=== PATIENT | female | born 1945 | race Caucasian/White ===

== ENCOUNTER → 2018-02-07 08:56 | Outpatient (CLI) | payer MEDICARE, OTHER, SELFPAY ==
--- NOTE | 2018-02-07 08:59 | DI.RAD.S_ITS ---
PROCEDURE: FL UPPER GI SMALL BOWEL INDICATIONS: pud COMPARISON: [facility], CR, CHEST 1 VIEW, 01/10/2018, 17:57. FINDINGS: KUB: Preprocedural manager ui film shows a normal bowel gas pattern. No suspicious abdominal calcifications. Visualized solid organ contours appear normal in size. No suspicious bony abnormalities. Esophagus: Air-contrast views demonstrate a normal mucosal pattern. On single-contrast views, there is normal peristalsis. No fixed strictures, extrinsic mass effects, or diverticula. There is a small hiatal hernia. Moderate gastroesophageal reflux. There is normal transit of a calibrated barium tablet through the esophagus. Stomach: The gastric lumen is normally distensible, and has normal rugal fold thickness. No mucosal masses or ulcers. The pylorus and duodenal bulb have a normal morphology. Small bowel: Duodenal folds appear normal in thickness. There is normal transit time of barium through the small intestine. Small bowel loops appear normal in caliber throughout. Jejunal and ileal folds are smooth and normal in thickness. No strictures, intraluminal masses, or extrinsic mass effects. The terminal ileum is identified and appears normal. IMPRESSION: 1. Moderate y severe gastroesophageal reflux. 2. Small hiatal hernia. 2. Normal small bowel follow-through. Dictated by: Leonides Hallman M.D. on 02/07/2018 at 15:38 Approved by: Leonides Hallman M.D. on 02/07/2018 at 15:40
== END ==
PROVIDERS: Family Provider Family Medicine; PCP Family Medicine; Visit Provider Family Medicine
DX: K21.9 Gastro-esophageal reflux disease without esophagitis (principal); K44.9 Diaphragmatic hernia without obstruction or gangrene
CPT/HCPCS: 74245

== ENCOUNTER 2018-03-26 06:37 | Day surgery (SDC) | payer MEDICARE, OTHER, SELFPAY ==
--- NOTE | 2018-03-26 | PATH_ITS ---
[facility] Accession Number: [id number] . 01 Material submitted: . THIRD PART OF DUODENUM . 02 Diagnosis: Biopsy Third Part of Duodenum: Fragments of normal appearing duodenum mucosa. Normal delicate mucosal villi present. Negative for significant inflammation, dysplasia or malignancy. MRV/03/27/2018 . 02 Electronically signed: . Jace Bergeron MD, Pathologist NPI- [id number] . 01 Gross description: . Received in one formalin-filled container, labeled with the patient's name, labeled third part of duodenum, are two 0.1-0.2 cm portions of tissue, entirely submitted in one cassette. ([id number]) /FRR . 02 Pathologist provided ICD-10: R10.13 . 02 CPT . 613891 Performed at: 01 [facility] [address] [place] [address] [id number] MD Kerwin Perez MD Phone: [phone] Performed at: 02 [facility] [address] [place] [address] [id number] MD Pop Ugarte MD Phone: [phone]
[2018-03-26] MEDS: SODIUM CHLORIDE 0.9% 1,000 ML 200 ML IV (07:20)
[2018-03-26 07:22] VITALS: BP 156/80; PULSE 83; RESP 15; TEMP 36.8; O2SAT 99; BMI 28.0
--- NOTE | 2018-03-26 07:54 | PM.PREOP ---
Pre-operative Note Interval Note Pre-op Check: History & Physical Reviewed by Physician and Exam Performed ASA Class (for procedural sedation): II
[2018-03-26] MEDS: LIDOCAINE 4% SOLN 50 ML 20 ML TOP (07:59)
[2018-03-26] MEDS: TETRACAINE/BENZOCAINE/BUTAMBEN (CETACAINE) BOTTLE 1 SPRAY TOP (08:00)
--- NOTE | 2018-03-26 08:14 | PM.OP.ENDO ---
Operative Date/Time/Diagnoses Date of procedure: 03/26/18 Time of procedure: 08:15 Pre-op diagnosis: Epigastric upper abdominal pain Post-op diagnosis: same (Small hiatal hernia. Irregularity of the duodenum biopsied.) Procedure & Clinicians Study performed: EGD with cold biopsy Same procedure as scheduled: Yes Indications: Epigastric pain. Reflux on upper GI. Surgeon: Omid Chapman Procedure Notes SCOAP/Timeout: Performed Procedure in detail: The patient had topical anesthetic applied to oropharynx. She was placed in left lateral decubitus position and underwent IV sedation directed by the surgeon consisting of fentanyl and Versed. A bite block was inserted and the scope was advanced through it into the esophagus. The esophagus was unremarkable. GE junction was noted at[38 cm from the incisors. I all hernia was noted.]. The stomach insufflated well. There were no lesions seen in the body, antrum or at the incisura. The pyloric channel was narrowed but patent. The duodenum bulb was normal. The 2nd portion the duodenum was also normal but as I made my turn into the 3rd portion there was a frondlike whitish lesion which I biopsied. It was not completely removed. The scope was brought back into the stomach and retroflexed. The proximal stomach was normal in appearance except for a hiatal hernia that was apparent from below. Gastric mucosa freely was seen to move up and down over the diaphragmatic compression. The scope was straightened and brought out through the esophagus again. No lesions were seen. The scope was removed and the patient tolerated the procedure well. Scope withdrawal time: Not applicable Sedation minutes: 12 Findings: hiatal hernia and other findings (Duodenal lesion 3rd part) Specimen(s): other (Duodenal lesion) Complications: none Plan for aftercare: Will send letter or call regarding biopsy results. Follow up: as needed Disposition: PACU
[2018-03-26 08:16] VITALS: BP 131/85; PULSE 80; RESP 15; TEMP 36.3; O2SAT 93
[2018-03-26] MEDS: MIDAZOLAM 5 MG/5 ML VIAL IV (08:16)
[2018-03-26 08:21] VITALS: BP 117/68; PULSE 78; RESP 14; O2SAT 93
[2018-03-26 08:26] VITALS: BP 122/7; PULSE 78; RESP 15; O2SAT 94
[2018-03-26 08:31] VITALS: BP 128/70; PULSE 78; RESP 18; O2SAT 98
[2018-03-26 08:34] VITALS: BP 128/70; PULSE 76; RESP 21; TEMP 36.3; O2SAT 98
== END 2018-03-26 08:58 | disposition home or self-care (01) ==
PROVIDERS: Family Provider Family Medicine; PCP Family Medicine; Visit Provider Specialist
PROC: 0DJ08ZZ Inspection of Upper Intestinal Tract, Via Natural or Artificial Opening Endoscopic (ICD-10-PCS; CPT 43235; principal; 2018-03-26 07:45)
DX: R10.13 Epigastric pain (principal); K21.9 Gastro-esophageal reflux disease without esophagitis; K44.9 Diaphragmatic hernia without obstruction or gangrene; K31.9 Disease of stomach and duodenum, unspecified; F41.9 Anxiety disorder, unspecified; E03.9 Hypothyroidism, unspecified
CPT/HCPCS: 43239; 88305; 99152; J2250

== ENCOUNTER → 2018-06-25 08:48 | Outpatient (CLI) | payer MEDICARE, OTHER, SELFPAY ==
[2018-06-25 09:24] LABS: Add Manual Diff / Slide Review NO; Basophils Percent Auto 0.9 % (0-2); Eosinophils Percent Auto 2.3 % (2-4); Hematocrit 37.5 % (36-46); Hemoglobin 12.7 g/dL (12.0-16.0); Mean Corpuscular HGB Conc 33.9 % (30-36); Mean Corpuscular Hemoglobin 30.2 PG (26-34); Mean Corpuscular Volume 88.8 fL (80-100); Neutrophils Absolute Auto 2700 /uL (3000-5900); Neutrophils Percent Auto 61.8 % (50-75); Platelet Count 210 X10^3/uL (150-400); Red Blood Cell Count 4.22 X10^6/uL (4.0-5.2); Red Cell Distribution Width 13.1 % (11.6-14.8); White Blood Cell Count 4.4 X10^3/uL (4.5-11.0)
[2018-06-25 10:05] LABS: BUN Creatinine Ratio 17.8 (6-22); Blood Urea Nitrogen 16 mg/dL (7-17); Calcium 9.3 mg/dL (8.4-10.2); Carbon Dioxide 30 mmol/L (22-32); Chloride 104 mmol/L (98-107); Estimated Glomerular Filt Rate > 60.0 mL/min (>60); Glucose 107 mg/dL (80-110); HEMOLYSIS < 15 (0-50); Potassium 4.6 mmol/L (3.4-5.1); Sodium 144 mmol/L (137-145)
== END ==
PROVIDERS: PCP Family Medicine; Visit Provider Family Medicine
DX: D69.6 Thrombocytopenia, unspecified (principal); D72.819 Decreased white blood cell count, unspecified; I10 Essential (primary) hypertension
CPT/HCPCS: 36415; 80048; 85025

== ENCOUNTER → 2018-06-28 15:35 | Outpatient (CLI) | payer MEDICARE, OTHER, SELFPAY ==
--- NOTE | 2018-06-28 15:53 | DI.RAD.S_ITS ---
PROCEDURE: XR THORACIC SPINE 3V INDICATIONS: pain TECHNIQUE: 3 views of the thoracic spine were acquired. COMPARISON: None. FINDINGS: Bones: No fractures or dislocations. No suspicious bony lesions. Mild levocurvature. Cervical disc degeneration noted. There is multilevel endplate sclerosis and spurring. Soft tissues: No paravertebral stripe thickening. IMPRESSION: Multilevel thoracic and cervical disc degeneration. Dictated by: Reid Hayden M.D. on 06/28/2018 at 17:05 Approved by: Reid Hayden M.D. on 06/28/2018 at 17:08
[2018-06-28 16:46] LABS: Alanine Aminotransferase 29 IU/L (9-52); Albumin 4.7 g/dL (3.5-5.0); Albumin Globulin Ratio 1.5 (1.0-2.8); Alkaline Phosphatase 55 U/L (38-126); Amylase 74 U/L (30-110); Aspartate Aminotransferase 23 IU/L (14-36); BUN Creatinine Ratio 18.9 (6-22); Bilirubin Total 0.3 mg/dL (0.2-1.3); Blood Urea Nitrogen 17 mg/dL (7-17); Calcium 9.5 mg/dL (8.4-10.2); Carbon Dioxide 28 mmol/L (22-32); Chloride 103 mmol/L (98-107); Estimated Glomerular Filt Rate > 60.0 mL/min (>60); Globulin 3.1 g/dL (1.7-4.1); Glucose 97 mg/dL (80-110); HEMOLYSIS < 15 (0-50); Lipase 124 U/L (23-300); Potassium 3.9 mmol/L (3.4-5.1); Sodium 141 mmol/L (137-145); Total Protein 7.8 g/dL (6.3-8.2)
== END ==
PROVIDERS: PCP Family Medicine; Visit Provider Family Medicine
DX: R10.11 Right upper quadrant pain (principal); M54.6 Pain in thoracic spine
CPT/HCPCS: 36415; 72072; 80053; 82150; 83690

== ENCOUNTER → 2018-07-02 10:05 | Outpatient (CLI) | payer MEDICARE, OTHER, SELFPAY ==
--- NOTE | 2018-07-02 10:13 | DI.CT.S_ITS ---
PROCEDURE: CT ABDOMEN WO/W CON INDICATIONS: right sidedinfracostal tenderness/fullness TECHNIQUE: 4 phase scanning was performed. Non-contrast 5 mm axial sections acquired from the diaphragm to the iliac crests. Following the administration of intravenous contrast, 5 mm thick arterial-phase, portal venous-phase, and 5-minute delayed phase images were acquired through the liver. 5 mm thick coronal and sagittal reformats were performed. For radiation dose reduction, the following was used: automated exposure control, adjustment of mA and/or kV according to patient size. COMPARISON: None. FINDINGS: Image quality: Excellent. Lung bases: Lung bases are clear. Heart size is normal. Liver: The liver appears free of mass or cirrhotic change, and no biliary distention is found. Other solid organs: Gallbladder has been previously resected. Biliary system is non dilated. Pancreas is normal in morphology. Spleen is normal in size and enhancement. No adrenal nodules. Both kidneys demonstrate normal size and enhancement, without hydronephrosis or nephrolithiasis. Nodes and vessels: No retroperitoneal or mesenteric adenopathy by size criteria. Aorta and inferior vena cava are normal in size. Bowel and peritoneum: Unenhanced bowel loops are normal in caliber. No free fluid or air. Bones: No suspicious bony lesions. No vertebral body compression fractures. Miscellaneous: No ventral hernias. IMPRESSION: Source of current symptoms is not found. The lower chest and ribs appear normal bilaterally, and the liver is free of mass or inflammation. Prior cholecystectomy. No biliary distention found. Through the large and small bowel visualized no lesion is seen. Dictated by: Kaden William M.D. on 07/02/2018 at 14:36 Approved by: Kaden William M.D. on 07/02/2018 at 14:38
== END ==
PROVIDERS: Family Provider Family Medicine; PCP Family Medicine; Visit Provider Family Medicine
DX: R10.11 Right upper quadrant pain (principal); Z90.49 Acquired absence of other specified parts of digestive tract
CPT/HCPCS: 74170; Q9967

== ENCOUNTER → 2019-07-05 09:28 | Outpatient (CLI) | payer MEDICARE, OTHER, SELFPAY ==
[2019-07-05 11:02] LABS: Add Manual Diff / Slide Review NO; Basophils Absolute Auto 0 /uL (0-100); Basophils Percent Auto 1.2 % (0-2); Eosinophils Absolute Auto 100 /uL (0-450); Eosinophils Percent Auto 2.3 % (2-4); Hematocrit 38.9 % (36-46); Hemoglobin 13.3 g/dL (12.0-16.0); Lymphocytes Absolute Auto 1100 /uL (1100-4500); Lymphocytes Percent Auto 27.2 % (25-40); Mean Corpuscular HGB Conc 34.3 % (30-36); Mean Corpuscular Hemoglobin 30.8 PG (26-34); Mean Corpuscular Volume 89.8 fL (80-100); Monocytes Absolute Auto 400 /uL (0-900); Monocytes Percent Auto 11.2 % (3-14); Neutrophils Absolute Auto 2300 /uL (1500-7000); Neutrophils Percent Auto 58.1 % (50-75); Platelet Count 241 X10^3/uL (150-400); Red Blood Cell Count 4.33 X10^6/uL (4.0-5.2); Red Cell Distribution Width 12.9 % (11.6-14.8)
[2019-07-05 11:16] LABS: Alanine Aminotransferase 18 IU/L (9-52); Albumin 4.5 g/dL (3.5-5.0); Albumin Globulin Ratio 1.4 (1.0-2.8); Alkaline Phosphatase 51 U/L (38-126); Aspartate Aminotransferase 25 IU/L (14-36); BUN Creatinine Ratio 13.3 (6-22); Bilirubin Total 0.5 mg/dL (0.2-1.3); Blood Urea Nitrogen 12 mg/dL (7-17); Calcium 9.3 mg/dL (8.4-10.2); Carbon Dioxide 29 mmol/L (22-32); Chloride 104 mmol/L (98-107); Cholesterol 174 mg/dL (140-199); Estimated Glomerular Filt Rate > 60.0 mL/min (>60); Globulin 3.2 g/dL (1.7-4.1); Glucose 112 mg/dL (80-110); HDL Cholesterol 79 mg/dL (40-60); HEMOLYSIS < 15 (0-50); LDL Cholesterol Calculated 82 mg/dL (<100); Potassium 4.2 mmol/L (3.4-5.1); Sodium 139 mmol/L (137-145); Total Protein 7.7 g/dL (6.3-8.2); Triglycerides 67 mg/dL (35-150)
[2019-07-05 11:43] LABS: Thyroid Stimulating Hormone 0.92 uIU/mL (0.47-4.68)
== END ==
PROVIDERS: PCP Family Medicine; Visit Provider Family Medicine
DX: E03.9 Hypothyroidism, unspecified (principal); E78.2 Mixed hyperlipidemia; I10 Essential (primary) hypertension
CPT/HCPCS: 36415; 80053; 80061; 84443; 85025

== ENCOUNTER 2020-08-22 09:37 | Observation (INO) | payer MEDICARE, OTHER, SELFPAY ==
[2020-08-22] VITALS (22 sets, daily range): BP systolic 103–180; BP diastolic 61–104; PULSE 63–163; RESP 14–34; TEMP 36.5–36.9; O2SAT 93–100; BMI 30.1; BMI 30.7
--- NOTE | 2020-08-22 09:51 | DI.RAD.S_ITS ---
PROCEDURE: XR CHEST 1V INDICATIONS: arrhythmia TECHNIQUE: One view of the chest was acquired. COMPARISON: [facility], CHEST 2 VIEW, 03/06/2007, 11:53. [facility], CHEST 2 VIEW, 10/13/2016, 19:48. [facility], CHEST 1 VIEW, 01/10/2018, 17:57. FINDINGS: Surgical changes and devices: None. Lungs and pleura: Lungs are clear. No pleural effusions or pneumothorax. Mediastinum: Mediastinal contours appear normal. Heart size is normal. Bones and chest wall: No suspicious bony lesions. Age-appropriate bony degenerative changes are seen. Overlying soft tissues appear unremarkable. IMPRESSION: Portable chest within normal limits for age. Dictated by: Paresh Tipton M.D. on 08/22/2020 at 9:09 Approved by: Paresh Tipton M.D. on 08/22/2020 at 9:10
--- NOTE | 2020-08-22 09:54 | ED_ITS ---
HPI - Chest Pain General Chief Complaint: Chest Pain Stated Complaint: chest and shoulder pain Time Seen by Provider: 08/22/20 09:44 Source: patient and family Mode of arrival: Ambulatory Limitations: no limitations History of Present Illness HPI narrative: This is a 75-year-old female who comes to the emergency dep artment with complaint of sudden onset fast heartbeat. Patient states she developed back pain that radiated to her anterior chest when this occurred. She felt quite short of breath although this is improving. She states the chest pain/pressure has been resolving. She felt mildly lightheaded but did not feel like she is going to pass out. She denies any diaphoresis, some mild nausea but no vomiting. No new issues with bowel movements or urination. She denies any swelling in her extremities. She has had similar episodes in the past but did not feel like they were as fast and resolved quickly wears this 1 has continued. She states that it occurred about 7:00 a.m. while she was awake, she felt like something grabbed her heart and then noted her heart beat was very fast. She states she has episodes every couple of months. She has a history of hypertension, dyslipidemia hypothyroidism. She states she had a stress test approximately 20 years ago but has not had any other cardiac interventions or evaluations. She has had multiple surgeries including cholecystectomy, appendectomy, total abdominal hysterectomy, knee surgery but nothing in the last several months. She is allergic to sulfa. Dr. Blum is her primary care. Related Data Previous Rx's Medication Instructions Recorded levothyroxine 88 mcg tablet 88 mcg PO Q DAY #90 tab 07/20/20 lisinopril 5 mg tablet 5 mg PO QDAY #90 tab 07/20/20 simvastatin 20 mg tablet 20 mg PO HS #90 tab 07/20/20 Allergies Allergy/AdvReac Type Severity Reaction Status Date / Time Sulfa (Sulfonamide AdvReac Severe VOMITING Verified 06/28/18 14:46 Antibiotics) [SULFA (SULFONAMIDE ANTIBIOTICS)] ANESTHESIA AdvReac Severe Uncoded 06/28/18 14:46 nausea Review of Systems Review of Systems ROS Unobtainable: All systems reviewed & are unremarkable except as noted in HPI and below Patient History Medical History Chicken pox Fibroids (~1979) Measles Mumps Vision disorder Surgical History Anesthesia History of cholecystectomy History of cholecystectomy History of hysterectomy History of knee surgery Status post cholecystectomy Status post total abdominal hysterectomy and bilateral salpingo-oophorectomy (KARISHMA-BSO) Family History Father Heart disease Social History marital status: household members: spouse occupational status: previously employed Smoking Status: Never smoker alcohol intake: current substance use type: does not use Smoking Status: Never smoker Exam Narrative Exam Narrative: GENERAL: Alert and oriented x three, well-nourished, well- appearing female in mild distress. HEENT: Head normocephalic, atraumatic, EOMI, pupils reactive, face symmetric, moist mucous membranes NECK: Supple, full range of motion CARDIOVASCULAR: Tachycardic and irregularly irregular rate and rhythm without murmurs, rubs or gallops. No JVD appreciated. No edema bilateral lower extr emities. RESPIRATORY: Breath sounds equal bilaterally, no wheezes rales or rhonchi. No tachypnea accessory muscle use. Speaks in full sentences. ABDOMEN: Soft, nontender. Normoactive bowel sounds all 4 quadrants. No guarding or rebound, rigidity, no mass : No CVA tenderness EXTREMITIES: Normal range of motion, no clubbing or edema. Neurovascularly intact NEUROLOGICAL: Cranial nerves II through XII grossly intact. Moving all extremities SKIN: Warm, dry, no petechiae, no rashes or lesions. Initial Vital Signs Initial Vital Signs: Vital Signs Temperature 98 F 08/22/20 10:23 Pulse Rate 152 H 08/22/20 10:23 Respiratory Rate 18 08/22/20 10:23 Blood Pressure 180/104 H 08/22/20 10:23 Pulse Oximetry 100 08/22/20 10:23 Scores CHADS-VASc Hypertension: yes Age 75 years or older: yes Diabetes mellitus: no Stroke, TIA, or TE: no Vascular disease: no Age 65 to 74 years: yes Sex category (female): Female Course Orders Ordered: ED Orders 08/22/20 09:39 XR chest 1V Stat EKG-12 Lead Stat 08/22/20 09:50 Complete Blood Count AUTO DIFF Stat Comprehensive Metabolic Panel Stat Lipase Stat Magnesium Stat Partial Thromboplastin Time Stat Prothrombin Time INR Stat Troponin & CK Cardiac Panel Stat 08/22/20 09:51 XR chest 1V Stat Thyroid Stimulating Hormone Stat 08/22/20 10:45 COVID19 Stat 08/22/20 14:01 EC echo doppler complete Routine 08/23/20 05:00 Prothrombin Time INR Routine Troponin I Routine Enoxaparin Sodium (Enoxaparin 80 Mg/0.8 Ml Syringe) 75 mg 1 mg/kg (75 mg) SUBCUT DAILY [facility] Last Admin: 08/22/20 15:02 Dose: 75 mg Documented by: ALFONSO Dextrose/Sodium Chloride (Dextrose 5%-0.45% Ns) 1,000 mls @ 100 mls/hr IV CONT [facility] Last Admin: 08/22/20 14:36 Dose: 100 mls/hr Documented by: ALFONSO DILTIAZEM (Diltiazem 125 Mg/125 Ml-D5w) 125 mg in 125 mls @ 5 mls/hr IV TITRATE ARGENIS; Protocol Last Admin: 08/22/20 14:35 Dose: Not Given Documented by: ALFONSO Levothyroxine Sodium (Levothyroxine 88 Mcg Tablet) 88 mcg PO DAILY@0600 [facility] Lisinopril (Lisinopril 5 Mg Tablet) 5 mg PO DAILY [facility] Metoprolol Tartrate (Metoprolol Tartrate 5 Mg/5 Ml Inj) 5 mg IV Q2HR PRN PRN Reason: Heart Rate- High Metoprolol Tartrate (Metoprolol Ir 50 Mg Tablet) 50 mg PO Q6H [facility] Last Admin: 08/22/20 15:05 Dose: 50 mg Documented by: ALFONSO Naloxone HCl (Naloxone 0.4 Mg/Ml Vial) 0.2 mg IV Q2MIN PRN PRN Reason: Opiate Reversal Sennosides (Sennosides 8.6 Mg Tablet) 17.2 mg PO BEDTIME [facility] Simvastatin (Simvastatin 20 Mg Tablet) 20 mg PO BEDTIME ARGENIS Discontinued Medications Diltiazem HCl (Diltiazem 5 Mg/Ml Sdv) 10 mg IV NOW ONE Stop: 08/22/20 09:52 Last Admin: 08/22/20 10:01 Dose: 10 mg Documented by: CHUCKY Diltiazem HCl (Diltiazem 5 Mg/Ml Sdv) 10 mg IV NOW ONE Stop: 08/22/20 10:29 Last Admin: 08/22/20 10:30 Dose: 10 mg Documented by: CHUCKY Sodium Chloride (Normal Saline 0.9%) 1,000 mls @ 1,000 mls/hr IV BOLUS ONE Stop: 08/22/20 10:50 Last Infusion: 08/22/20 11:28 Dose: 0 mls/hr Documented by: Admin: 08/22/20 10:14 Dose: 1,000 mls/hr Documented by: CHUCKY Diltiazem HCl 125 mg/ Dextrose 125 mls @ 5 mls/hr IV TITRATE ONE; Protocol Stop: 08/23/20 10:53 Last Admin: 08/22/20 14:49 Dose: Not Given Documented by: BRIGIDA DILTIAZEM (Diltiazem 125 Mg/125 Ml-D5w) 125 mg in 125 mls @ 5 mls/hr IV TITRATE ONE; Protocol Stop: 08/23/20 11:14 Last Titration: 08/22/20 16:29 Dose: 0 mg/hr, 0 mls/hr Documented by: Titration: 08/22/20 16:12 Dose: 5 mg/hr, 5 mls/hr Documented by: Titration: 08/22/20 15:57 Dose: 10 mg/hr, 10 mls/hr Documented by: Titration: 08/22/20 13:55 Dose: 15 mg/hr, 15 mls/hr Documented by: Titration: 08/22/20 12:52 Dose: 10 mg/hr, 10 mls/hr Documented by: Admin: 08/22/20 10:13 Dose: 5 mg/hr, 5 mls/hr Documented by: CHUCKY Sodium Chloride (Normal Saline 0.9%) 1,000 mls @ 150 mls/hr IV CONT ARGENIS Last Admin: 08/22/20 11:39 Dose: 150 mls/hr Documented by: TAMIKO Reevaluation(s) Time: 11:27 Consultations Consultation #1: Spoke with Dr. Ayala who accepts for Dr. Blum, plan to continue Cardizem drip and patient will be in the ICU. Patient is in afib with RVR. Initially had improvement with diltiazem but when patient was up to a commode heart rate jumped up again. No major lab abnormalities, covid negative. Time: 11:34 Vital Signs Vital signs: Vital Signs - 8 hr 08/22/20 10:23 08/22/20 10:56 08/22/20 11:00 Temperature 98 F Pulse Rate 152 H 141 H 146 H Respiratory Rate 18 17 15 Blood Pressure 180/104 H 131/93 H Pulse Oximetry 100 99 99 08/22/20 11:16 08/22/20 11:30 08/22/20 11:38 Temperature Pulse Rate 139 H 148 H 147 H Respiratory Rate 15 34 H 18 Blood Pressure 160/76 H 145/84 H Pulse Oximetry 97 97 98 08/22/20 11:45 08/22/20 12:00 08/22/20 12:30 Temperature Pulse Rate 146 H 139 H 145 H Respiratory Rate 16 15 17 Blood Pressure 139/63 150/61 H Pulse Oximetry 97 96 97 08/22/20 13:50 Temperature 98.3 F Pulse Rate 163 H Respiratory Rate 18 Blood Pressure 169/88 H Pulse Oximetry 98 MDM - Chest Pain Lab Data Attestation: I reviewed the patient's lab results. Result diagrams: 08/22/20 09:50 08/22/20 09:50 Labs: Lab Results 08/22/20 08/22/20 08/22/20 Range/Units 09:50 09:50 09:50 WBC 6.1 (4.5-11.0) X10^3/uL RBC 4.30 (4.0-5.2) X10^6/uL Hgb 13.2 (12.0-16.0) g/dL Hct 38.8 (36-46) % MCV 90.3 (80-100) fL MCH 30.8 (26-34) PG MCHC 34.1 (30-36) % RDW 12.9 (11.6-14.8) % Plt Count 250 (150-400) X10^3/uL Neut % (Auto) 65.8 (50-75) % Lymph % (Auto) 20.7 L (25-40) % [place] % (Auto) 10.8 (3-14) % Eos % (Auto) 1.8 L (2-4) % Baso % (Auto) 0.9 (0-2) % Neut # (Auto) 4000 (6641-6851) /uL Lymph # (Auto) 1300 (3298-1283) /uL [place] # (Auto) 700 (0-900) /uL Eos # (Auto) 100 (0-450) /uL Baso # (Auto) 100 (0-100) /uL PT 11.2 (10.1-12.7) SECONDS INR 1.0 (0.9-1.3) APTT 30 (26.4-36.2) SECONDS Sodium 137 (137-145) mmol/L Potassium 4.1 (3.4-5.1) mmol/L Chloride 105 (98-107) mmol/L Carbon Dioxide 27 (22-32) mmol/L BUN 12 (7-17) mg/dL Creatinine 0.86 (0.52-1.04) mg/dL Estimated GFR > 60.0 (>60) mL/min BUN/Creatinine Ratio 14.0 (6-22) Glucose 162 H (80-110) mg/dL Calcium 9.1 (8.4-10.2) mg/dL Magnesium 1.9 (1.6-2.3) mg/dL Total Bilirubin 0.5 (0.2-1.3) mg/dL AST 26 (14-36) IU/L ALT 19 (<35) IU/L Alkaline Phosphatase 51 (38-126) U/L Total Creatine Kinase 45 (30-135) U/L CK-MB (CK-2) TNP CK-MB (CK-2) Rel Index TNP Troponin I < 0.012 (0.01-0.034) ng/mL Total Protein 7.3 (6.3-8.2) g/dL Albumin 4.3 (3.5-5.0) g/dL Globulin 3.0 (1.7-4.1) g/dL Albumin/Globulin Ratio 1.4 (1.0-2.8) Lipase 112 (23-300) U/L TSH (0.47-4.68) uIU/mL COVID-19 PCR (Negative) 08/22/20 08/22/20 Range/Units 09:51 10:45 WBC (4.5-11.0) X10^3/uL RBC (4.0-5.2) X10^6/uL Hgb (12.0-16.0) g/dL Hct (36-46) % MCV (80-100) fL MCH (26-34) PG MCHC (30-36) % RDW (11.6-14.8) % Plt Count (150-400) X10^3/uL Neut % (Auto) (50-75) % Lymph % (Auto) (25-40) % [place] % (Auto) (3-14) % Eos % (Auto) (2-4) % Baso % (Auto) (0-2) % Neut # (Auto) (8695-7111) /uL Lymph # (Auto) (1374-0248) /uL [place] # (Auto) (0-900) /uL Eos # (Auto) (0-450) /uL Baso # (Auto) (0-100) /uL PT (10.1-12.7) SECONDS INR (0.9-1.3) APTT (26.4-36.2) SECONDS Sodium (137-145) mmol/L Potassium (3.4-5.1) mmol/L Chloride (98-107) mmol/L Carbon Dioxide (22-32) mmol/L BUN (7-17) mg/dL Creatinine (0.52-1.04) mg/dL Estimated GFR (>60) mL/min BUN/Creatinine Ratio (6-22) Glucose (80-110) mg/dL Calcium (8.4-10.2) mg/dL Magnesium (1.6-2.3) mg/dL Total Bilirubin (0.2-1.3) mg/dL AST (14-36) IU/L ALT (<35) IU/L Alkaline Phosphatase (38-126) U/L Total Creatine Kinase (30-135) U/L CK-MB (CK-2) CK-MB (CK-2) Rel Index Troponin I (0.01-0.034) ng/mL Total Protein (6.3-8.2) g/dL Albumin (3.5-5.0) g/dL Globulin (1.7-4.1) g/dL Albumin/Globulin Ratio (1.0-2.8) Lipase (23-300) U/L TSH 1.27 (0.47-4.68) uIU/mL COVID-19 PCR Negative (Negative) Imaging Data Chest x-ray: Radiologist's Impression: [facility] [place] [id number] ReportSigned Patient: Flor Nunez JMR#: [id number]: 3Acct:[id number]/Sex: 75 / FDate of Service: 08/22/20Loc: EDAccession Number: [id number] Procedure: XR chest 1V Ordering Provider: Rere Hagen D.O. PROCEDURE: XR CHEST 1V INDICATIONS: arrhythmia TECHNIQUE: One view of the chest was acquired. COMPARISON: [facility], , CHEST 2 VIEW, 03/06/2007, 11:53. [facility], CR, CHEST 2 VIEW, 10/13/2016, 19:48. [facility], CR, CHEST 1 VIEW, 01/10/2018, 17:57. FINDINGS: Surgical changes and devices: None. Lungs and pleura: Lungs are clear. No pleural effusions or pneumothorax. Mediastinum: Mediastinal contours appear normal. Heart size is normal. Bones and chest wall: No suspicious bony lesions. Age-appropriate bony degenerative changes are seen. Overlying soft tissues appear unremarkable. IMPRESSION: Portable chest within normal limits for age. Dictated by: Paresh Tipton M.D. on 08/22/2020 at 9:09 Approved by: Paresh Tipton M.D. on 08/22/2020 at 9:10 ECG Data Attestation: I personally reviewed and interpreted this ECG as follows: Interpretation: AFib with rapid ventricular response with a rate 156, QRS of 85 and QTC of 330. Patient possibly has little ST depression in lead but not appreciated in 3 AVF. No significant elevation appreciated. Patient has prior EKG from 01/10/2018 which was normal sinus rhythm with PVC at that time. Lateral leads had a little bit of J-point depression which appears similar to today but no other significant ST changes MDM Narrative Medical decision making narrative: This is a 75-year-old female who comes in with complaint of a sensation of fast heartbeat. Patient states she was having some chest pressure that started in her back and radiated anteriorly. Patient does appear to be in AFib with RVR with a heart rate initially in the 170s, it did improve with diltiazem but continues to be tachycardic even on diltiazem drip. Patient does not have major lab abnormalities, chest x-ray is negative she is not currently short of breath so BNP was deferred. Troponin is negative with no significant ST segment changes. Patient is accepted for admission by Dr. Ayala. Discharge Plan Departure Patient Disposition: Admitted as Observation Clinical Impression: Atrial fibrillation with RVR Admit Date/Time: 08/22/20 13:53 Admit Provider: Leonardo Ayala
[2020-08-22 09:58] LABS: Add Manual Diff / Slide Review NO; Basophils Absolute Auto 100 /uL (0-100); Basophils Percent Auto 0.9 % (0-2); Eosinophils Absolute Auto 100 /uL (0-450); Eosinophils Percent Auto 1.8 % (2-4); Hematocrit 38.8 % (36-46); Hemoglobin 13.2 g/dL (12.0-16.0); Lymphocytes Absolute Auto 1300 /uL (1100-4500); Lymphocytes Percent Auto 20.7 % (25-40); Mean Corpuscular HGB Conc 34.1 % (30-36); Mean Corpuscular Hemoglobin 30.8 PG (26-34); Mean Corpuscular Volume 90.3 fL (80-100); Monocytes Absolute Auto 700 /uL (0-900); Monocytes Percent Auto 10.8 % (3-14); Neutrophils Absolute Auto 4000 /uL (1500-7000); Neutrophils Percent Auto 65.8 % (50-75); Platelet Count 250 X10^3/uL (150-400); Red Cell Distribution Width 12.9 % (11.6-14.8); White Blood Cell Count 6.1 X10^3/uL (4.5-11.0)
[2020-08-22] MEDS: dilTIAZem 5 MG/ML SDV 10 MG IV ×2 (10:01→10:30)
[2020-08-22 10:03] LABS: Prothrombin Time 11.2 SECONDS (10.1-12.7)
[2020-08-22 10:06] LABS: PTT Partial Thromboplastin Tim 30 SECONDS (26.4-36.2)
[2020-08-22 10:08] LABS: Alanine Aminotransferase 19 IU/L (<35); Albumin 4.3 g/dL (3.5-5.0); Albumin Globulin Ratio 1.4 (1.0-2.8); Alkaline Phosphatase 51 U/L (38-126); Aspartate Aminotransferase 26 IU/L (14-36); Bilirubin Total 0.5 mg/dL (0.2-1.3); Blood Urea Nitrogen 12 mg/dL (7-17); Calcium 9.1 mg/dL (8.4-10.2); Carbon Dioxide 27 mmol/L (22-32); Chloride 105 mmol/L (98-107); Creatine Kinase 45 U/L (30-135); Estimated Glomerular Filt Rate > 60.0 mL/min (>60); Glucose 162 mg/dL (80-110); HEMOLYSIS < 15 (0-50); Lipase 112 U/L (23-300); Magnesium 1.9 mg/dL (1.6-2.3); Potassium 4.1 mmol/L (3.4-5.1); Sodium 137 mmol/L (137-145); Total Protein 7.3 g/dL (6.3-8.2)
[2020-08-22] MEDS: DILTIAZEM 125 MG/125 ML PIGGYBACK IV (10:13)
[2020-08-22] MEDS: SODIUM CHLORIDE 0.9% 1,000 ML 1000 ML IV (10:14)
[2020-08-22 10:19] LABS: Troponin I < 0.012 ng/mL (0.01-0.034)
[2020-08-22 10:50] LABS: Thyroid Stimulating Hormone 1.27 uIU/mL (0.47-4.68)
[2020-08-22 11:13] LABS: COVID19 -Nasal RAPID Negative (Negative)
[2020-08-22] MEDS: SODIUM CHLORIDE 0.9% 1,000 ML 150 ML IV (11:39)
--- NOTE | 2020-08-22 14:01 | DI.ECHO.S_ITS ---
[place] +---------+ [facility] +---------+ : : [address] : : : : [id number] : : : : Phone: [phone]+ Echocardiogram Report + + :Name: TRISH MATOS Study Date: 08/23/2020 Height: 63 in : :[facility] Weight: 170 lb : : Gender: Female BSA: 1.8 m2 : :: 1945 Age: 75 yrs BP: 128/80 mmHg: :Reason For Study: AFIB WITH RVE : :Ordering Physician: NNADINI, : :NICOLE Performed By: Rose Muhammad : :Referring: NICOLE DELATORRE : + + Interpretation Summary Atrial fibrillation with rapid ventricular response. Normal LV size; mild concentric LVH. Normal wall motion and left ventricular systolic function. Ejection fraction is 55-60%. Mild left atrial enlargement. Otherwise normal chamber sizes. No significant valvular abnormalities. No prior study available for comparison. Procedure: A two-dimensional transthoracic echocardiogram with color flow and Doppler was performed. The study quality was technically adequate. There is no prior echocardiogram noted for this patient. The patient was in atrial fibrillation with heart rates between 94-119 bpm during the exam. Left Ventricle: The left ventricle is normal in size. Left ventricular wall thickness is mildly increased. Proximal septal thickening is noted. The ejection fraction is estimated to be 55-60%. Diastolic function could not be accurately assessed due to atrial fibrillation. Right Ventricle: The right ventricle is normal in size and function. Atria: The left atrium is mildly dilated. Right atrial size is normal. There is no Doppler evidence for an interatrial shunt. Mitral Valve: The mitral valve leaflets appear mildly thickened, but open well. There is mild mitral annular calcification. There is mild mitral regurgitation. Aortic Valve: The aortic valve is grossly normal. The aortic valve opens well. There is no aortic valve stenosis. No aortic regurgitation is present. Tricuspid Valve: The tricuspid valve is normal in structure and function. There is mild tricuspid regurgitation. The right ventricular systolic pressure is estimated to be at least 29 mmHg based on an estimated right atrial pressure of 3 mm Hg. Pulmonic Valve: The pulmonic valve is not well visualized. There is no pulmonic valvular regurgitation. Great Vessels: The aortic root is normal size. The dimensions of the ascending aorta are normal. The IVC is of normal diameter and collapses greater than 50% with a sniff. This suggests a low right atrial pressure of 3 mm Hg. Pericardium/ Pleura There is no pericardial effusion. There is an anterior echo-free space consistent with a fat pad. There is no pleural effusion. MMode/2D Measurements & Calculations LVIDd: 4.6 cm LVOT diam: 2.0 cm LVIDs: 3.3 cm Ao root diam: 3.0 cm FS: 28.9 % Ao Arch Diam (Prox Trans): 3.3 cm EPSS: 0.68 cm IVSd: 1.2 cm LVPWd: 1.2 cm LV noble. diameter/BSA (cm/m^2): 2.6 LV sys. diameter/BSA (cm/m^2): 1.8 LA A2 area: 22.3 cm2 RA long axis: 4.9 cm LA A4 area: 17.6 cm2 RA area: 13.6 cm2 LA length (vol): 5.3 cm RA vol: 32.1 ml LA vol: 62.3 ml RA : 17.8 ml/m2 LA vol index: 34.5 ml/m2 IVC diam: 1.9 cm RVD1 (basal): 3.0 cm TAPSE: 1.7 cm Doppler Measurements & Calculations Ao V2 max: 96.6 cm/sec LVOT Max Glen: 78.6 cm/sec Ao V2 mean: 62.9 cm/sec LV V1 max P.5 mmHg Ao max P.7 mmHg LV V1 VTI: 13.2 cm Ao mean P.9 mmHg KEYSHA(I,D): 3.1 cm2 Ao V2 VTI: 13.4 cm KEYSHA(V,D): 2.6 cm2 sev ratio: 0.98 KEYSHA indexed to BSA (cm^2/m^2): 1.7 MV E max glen: 103.3 cm/sec TR max glen: 254.2 cm/sec MV A max glen: 1.1 cm/sec TR max P.8 mmHg MV E/A: 96.1 PA V2 max: 44.3 cm/sec Med Peak E' Glen: 8.4 cm/sec PA V2 mean: 27.2 cm/sec E/E' med: 12.2 PA mean P.37 mmHg Lat Peak E' Glen: 9.6 cm/sec PA pr(Accel): 20.8 mmHg E/E' lat: 10.8 E/e' average: 11.5 MV dec time: 0.15 sec SV(LVOT): 41.8 ml Electronically signed by: Tamika Newberry M.D. on [place] Physician:08/23/2020 04:01 PM
[2020-08-22] MEDS: DEXTROSE 5%-0.45% NS 1,000 ML 100 ML IV ×2 (14:36→23:55)
--- NOTE | 2020-08-22 14:50 | P.HP_ITS ---
History of Present Illness History of Present Illness Date Patient Seen: 08/22/20 Time Patient Seen: 14:15 Chief complaint: chest and shoulder pain Narrative: 75-year-old female with a history of hypothyroidism hypertension and hyperlipidemia comes in because of back and chest pain. She woke up this morning and she had pain between her shoulder blades. Radiating around to her chest. This was going on when she had a rapid heart rate as well. She became concerned enough that she came to the emergency department. Her EKG laboratory and x-ray testing showed she was in atrial fibrillation with rapid ventricular response with a heart rate of 170. Patient states over the last few months as she has had some mild increased anxiety due to family circumstances. When she gets anxious she finds her heart races. Will race on and off a number of times a week to a few times a month. Usually for a few minutes to half an hour so. It then goes away. Has never been associated with pain in her chest or her back. She just thought it was anxiety but she thinks maybe her heart was racing to begin with. Currently she has no pain in her chest or back. She is not short of breath. She is not lightheaded or dizzy. Her initial heart rate was 170s now it is 130s to 140s. She has been based on a day till is am drip. Patient has had a Nathan going workup of her thyroid condition and she is on thyroid replacement and most recent TSH is normal. Patient does not drink significant alcohol. She has had no previous coronary artery disease a known history of heart failure. On review of her blood pressure blood pressure is stable. Reviewed her laboratory testing and of note her cardiac enzymes are within normal limits. Lipase is normal thyroid is normal Patient History Medical History Chicken pox Fibroids (~1979) Measles Mumps Vision disorder Surgical History Anesthesia History of cholecystectomy History of cholecystectomy History of hysterectomy History of knee surgery Status post cholecystectomy Status post total abdominal hysterectomy and bilateral salpingo-oophorectomy (KARISHMA-BSO) Family & Social History Family History Father Heart disease Social History: household members spouse Prior Living Arrangements House Safety & Behavioral: Feels Safe in Current Yes Environment Been Physically Hurt or No Threatened By a Person Suicidal Ideation Description None Suicide Plan Description No Plan Tobacco & Substance use: Smoking Status Never smoker alcohol intake current alcohol intake frequency 0-2 drinks per day Meds Home Medications and Allergies Home Medications Medication Instructions Recorded Confirmed Type levothyroxine 88 mcg tablet 88 mcg PO Q DAY #90 tab 07/20/20 08/22/20 Rx lisinopril 5 mg tablet 5 mg PO QDAY #90 tab 07/20/20 08/22/20 Rx simvastatin 20 mg tablet 20 mg PO HS #90 tab 07/20/20 08/22/20 Rx Allergies Allergy/AdvReac Type Severity Reaction Status Date / Time Sulfa (Sulfonamide AdvReac Severe VOMITING Verified 06/28/18 14:46 Antibiotics) [SULFA (SULFONAMIDE ANTIBIOTICS)] ANESTHESIA AdvReac Severe Uncoded 06/28/18 14:46 nausea Exam Vital Signs (past 8 hours): - 08/22/20 10:23 08/22/20 10:56 08/22/20 11:00 Temperature 98 F Pulse Rate 152 H 141 H 146 H Respiratory Rate 18 17 15 Blood Pressure 180/104 H 131/93 H Pulse Oximetry 100 99 99 08/22/20 11:16 08/22/20 11:30 08/22/20 11:38 Temperature Pulse Rate 139 H 148 H 147 H Respiratory Rate 15 34 H 18 Blood Pressure 160/76 H 145/84 H Pulse Oximetry 97 97 98 08/22/20 11:45 08/22/20 12:00 08/22/20 12:30 Temperature Pulse Rate 146 H 139 H 145 H Respiratory Rate 16 15 17 Blood Pressure 139/63 150/61 H Pulse Oximetry 97 96 97 08/22/20 13:50 08/22/20 14:12 Temperature 98.3 F Pulse Rate 163 H 123 H Respiratory Rate 18 19 Blood Pressure 169/88 H 154/74 H Pulse Oximetry 98 98 Oxygen Delivery Method Room Air Oxygen Flow Rate 0 Narrative Exam Narrative: Gen.: Alert and oriented x3 no apparent distress. HEENT: NCAT PERRLA tympanic membranes are clear nares are patent oral mucosa is moist no tonsillar hypertrophy neck is supple without lymphadenopathy no thyroid enlargement. Cardio: S1-S2 irregular rate and rhythm Respiratory: Lungs are clear to auscultation no wheezes or crackles normal respiratory effort. Abdomen: Soft nontender no rebound or guarding no liver spleen enlargement no appreciable hernias Extremities: Full range of motion no appreciable weakness no cyanosis or edema. Neurologic: Grossly intact. Objective Labs Result Diagrams: 08/22/20 09:50 08/22/20 09:50 Labs: Laboratory Results - last 24 hr 08/22/20 08/22/20 08/22/20 09:50 09:50 09:50 WBC 6.1 RBC 4.30 Hgb 13.2 Hct 38.8 MCV 90.3 MCH 30.8 MCHC 34.1 RDW 12.9 Plt Count 250 Neut % (Auto) 65.8 Lymph % (Auto) 20.7 L [place] % (Auto) 10.8 Eos % (Auto) 1.8 L Baso % (Auto) 0.9 Neut # (Auto) 4000 Lymph # (Auto) 1300 [place] # (Auto) 700 Eos # (Auto) 100 Baso # (Auto) 100 PT 11.2 INR 1.0 APTT 30 Sodium 137 Potassium 4.1 Chloride 105 Carbon Dioxide 27 BUN 12 Creatinine 0.86 Estimated GFR > 60.0 BUN/Creatinine Ratio 14.0 Glucose 162 H Calcium 9.1 Magnesium 1.9 Total Bilirubin 0.5 AST 26 ALT 19 Alkaline Phosphatase 51 Total Creatine Kinase 45 CK-MB (CK-2) TNP CK-MB (CK-2) Rel Index TNP Troponin I < 0.012 Total Protein 7.3 Albumin 4.3 Globulin 3.0 Albumin/Globulin Ratio 1.4 Lipase 112 TSH COVID-19 PCR 08/22/20 08/22/20 09:51 10:45 WBC RBC Hgb Hct MCV MCH MCHC RDW Plt Count Neut % (Auto) Lymph % (Auto) [place] % (Auto) Eos % (Auto) Baso % (Auto) Neut # (Auto) Lymph # (Auto) [place] # (Auto) Eos # (Auto) Baso # (Auto) PT INR APTT Sodium Potassium Chloride Carbon Dioxide BUN Creatinine Estimated GFR BUN/Creatinine Ratio Glucose Calcium Magnesium Total Bilirubin AST ALT Alkaline Phosphatase Total Creatine Kinase CK-MB (CK-2) CK-MB (CK-2) Rel Index Troponin I Total Protein Albumin Globulin Albumin/Globulin Ratio Lipase TSH 1.27 COVID-19 PCR Negative Assessment & Plan Assessment & Plan narrative: Atrial fibrillation with rapid ventricular response. 75-year-old female with atrial fibrillation with rapid ventricular response. Started on Cardizem drips in the emergency room we will continue with that. Her heart rates high. Will start her on oral metoprolol. Provide metoprolol IV as needed to try to get her heart rate down to normal range her blood pressure is a little bit elevated she is not hypotensive. Patient is not unstable she is carrying on a conversation has no pain and she is not short of breath. I am suspicious that this has been going on for a while. Continue to workup underlying causes. With an echocardiogram magnesium level. EKG. It does not look like she has underlying heart failure coronary artery disease is her cardiac troponins are negative despite having a fairly rapid heart rate. Due to her risk of some stroke with atrial fibrillation. Patient will be placed on anticoagulation with Lovenox and will need to be converted to either warfarin or factor Xa inhibitor. Did review the risks benefits of anticoagulation with the patient and she is agreement with this. Essential hypertension. Patient's blood pressure is high. She will be continued on Cardizem starting metoprolol. And her home dose of lisinopril. Monitor closely for signs of hypotension. Hypothyroidism. Patient's TSH is normal continue her home to ice of thyroid 88 mcg a day. Hyperlipidemia. Patient is on simvastatin 20 mg a day we will continue with that. Code status full code. Disposition and plan patient admitted to the ICU for better management of atrial fibrillation blood pressure IV management of her atrial fibrillation. She will be in the hospital spanning greater than 2 midnights
[2020-08-22] MEDS: ENOXAPARIN 80 MG/0.8 ML SYRINGE 75 MG SUBCUT (15:02)
[2020-08-22] MEDS: METOPROLOL IR 50 MG TABLET PO ×2 (15:05→21:05)
[2020-08-22] MEDS: SENNOSIDES 8.6 MG TABLET 17.2 MG PO (21:05)
[2020-08-23] VITALS (16 sets, daily range): BP systolic 114–153; BP diastolic 65–93; PULSE 59–137; RESP 12–20; TEMP 36.1–37.3; O2SAT 92–100
[2020-08-23] MEDS: METOPROLOL IR 50 MG TABLET PO ×2 (02:04→09:10)
[2020-08-23 04:59] LABS: INR 1.1 (0.9-1.3); Prothrombin Time 12.3 SECONDS (10.1-12.7)
[2020-08-23] MEDS: LEVOTHYROXINE 88 MCG TABLET PO (05:08)
--- NOTE | 2020-08-23 05:30 | PC.NURSE ---
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 A fib on tele, CVR/RVR. Patient receiving scheduled Metoprolol 50 mg this AM ~0200. BP with better control, HR remains 90-100s. No complaints of chest pain/shortness of breath. Patient up to restroom multiples throughout shift with SBA. , Herrera at bedside with patient. Call light in reach, patient able to make needs/concerns known.
[2020-08-23] MEDS: lisinopriL 5 MG TABLET PO (07:58)
[2020-08-23] MEDS: ENOXAPARIN 80 MG/0.8 ML SYRINGE 75 MG SUBCUT (08:55)
--- NOTE | 2020-08-23 08:59 | PM.PN.1 ---
Subjective Subjective Date Patient Seen: 08/23/20 Time Patient Seen: 08:59 Interval history: Atrial fibrillation Patient yesterday for atrial fibrillation. She was given diltiazem drip slow her down slightly. She was then given metoprolol tartrate currently on 50 mg every 6 hours heart rate runs approximately 110 still in atrial fibrillation. She basically is asymptomatic referable to this. She came to the ER ST because shoulder and chest pain. That has since resolved. She has not ambulated much but she is active in the bedroom. She is not very hungry. She has no chest pain no shortness breath no palpitations as stated she is basically unaware has been active in room as lot of questions. Exam Vital Signs (past 8 hours): - 08/23/20 01:00 08/23/20 02:00 08/23/20 03:00 Temperature 98.2 F 97.7 F Pulse Rate 91 H 99 H 137 H Respiratory Rate 12 13 16 Blood Pressure 124/73 153/75 H 130/80 Pulse Oximetry 97 97 97 08/23/20 04:00 08/23/20 05:00 08/23/20 06:00 Temperature 99.1 F 97.7 F 97.7 F Pulse Rate 103 H 103 H 107 H Respiratory Rate 16 13 12 Blood Pressure 139/67 141/87 H 146/75 H Pulse Oximetry 99 98 97 08/23/20 07:00 08/23/20 07:58 08/23/20 08:00 Temperature 97.8 F 98.3 F Pulse Rate 120 H 109 H 103 H Respiratory Rate 15 13 Blood Pressure 128/80 145/86 H 145/86 H Pulse Oximetry 100 99 08/23/20 08:22 08/23/20 08:31 Temperature Pulse Rate 120 H 107 H Respiratory Rate 16 Blood Pressure Pulse Oximetry 98 Oxygen Delivery Method Room Air Oxygen Flow Rate 0 Narrative Exam Narrative: She appears usual self looks well. She is in no distress. Lungs are entirely clear. Cardiac exam irregularly irregular rhythm about 100 tender so. She has no calf tenderness and she has no edema Objective Labs Result Diagrams: 08/22/20 09:50 08/22/20 09:50 Labs: Laboratory Results - last 24 hr 08/22/20 08/22/20 08/22/20 09:50 09:50 09:50 WBC 6.1 RBC 4.30 Hgb 13.2 Hct 38.8 MCV 90.3 MCH 30.8 MCHC 34.1 RDW 12.9 Plt Count 250 Neut % (Auto) 65.8 Lymph % (Auto) 20.7 L [place] % (Auto) 10.8 Eos % (Auto) 1.8 L Baso % (Auto) 0.9 Neut # (Auto) 4000 Lymph # (Auto) 1300 [place] # (Auto) 700 Eos # (Auto) 100 Baso # (Auto) 100 PT 11.2 INR 1.0 APTT 30 Sodium 137 Potassium 4.1 Chloride 105 Carbon Dioxide 27 BUN 12 Creatinine 0.86 Estimated GFR > 60.0 BUN/Creatinine Ratio 14.0 Glucose 162 H Calcium 9.1 Magnesium 1.9 Total Bilirubin 0.5 AST 26 ALT 19 Alkaline Phosphatase 51 Total Creatine Kinase 45 CK-MB (CK-2) TNP CK-MB (CK-2) Rel Index TNP Troponin I < 0.012 Total Protein 7.3 Albumin 4.3 Globulin 3.0 Albumin/Globulin Ratio 1.4 Lipase 112 TSH Nasal Screen MRSA (PCR) COVID-19 PCR 08/22/20 08/22/20 08/22/20 09:51 10:45 14:15 WBC RBC Hgb Hct MCV MCH MCHC RDW Plt Count Neut % (Auto) Lymph % (Auto) [place] % (Auto) Eos % (Auto) Baso % (Auto) Neut # (Auto) Lymph # (Auto) [place] # (Auto) Eos # (Auto) Baso # (Auto) PT INR APTT Sodium Potassium Chloride Carbon Dioxide BUN Creatinine Estimated GFR BUN/Creatinine Ratio Glucose Calcium Magnesium Total Bilirubin AST ALT Alkaline Phosphatase Total Creatine Kinase CK-MB (CK-2) CK-MB (CK-2) Rel Index Troponin I Total Protein Albumin Globulin Albumin/Globulin Ratio Lipase TSH 1.27 Nasal Screen MRSA (PCR) Negative for mrsa COVID-19 PCR Negative 08/23/20 08/23/20 04:20 04:20 WBC RBC Hgb Hct MCV MCH MCHC RDW Plt Count Neut % (Auto) Lymph % (Auto) [place] % (Auto) Eos % (Auto) Baso % (Auto) Neut # (Auto) Lymph # (Auto) [place] # (Auto) Eos # (Auto) Baso # (Auto) PT 12.3 INR 1.1 APTT Sodium Potassium Chloride Carbon Dioxide BUN Creatinine Estimated GFR BUN/Creatinine Ratio Glucose Calcium Magnesium Total Bilirubin AST ALT Alkaline Phosphatase Total Creatine Kinase CK-MB (CK-2) CK-MB (CK-2) Rel Index Troponin I 0.020 Total Protein Albumin Globulin Albumin/Globulin Ratio Lipase TSH Nasal Screen MRSA (PCR) COVID-19 PCR Labs reviewed [facility] Medical History Chicken pox Fibroids (~1979) Measles Mumps Vision disorder Surgical History Anesthesia History of cholecystectomy History of cholecystectomy History of hysterectomy History of knee surgery Status post cholecystectomy Status post total abdominal hysterectomy and bilateral salpingo-oophorectomy (KARISHMA-BSO) Family History Father Heart disease Social History marital status: household members: spouse occupational status: previously employed Smoking Status: Never smoker alcohol intake: current substance use type: does not use Assessment & Plan Assessment & Plan narrative: Number atrial fibrillation no obvious etiology yet. Echocardiogram result pending. Patient need further workup as outpatient. 2. Rate control as still has inadequate. Had discussed case with Dr. Harman Goncalves a shipyard helper on-call. He recommended metoprolol tartrate 75 mg every 6 hours and then if that was had inadequate to go to 100 mg every 6 hours. And if that was inadequate and digoxin. Upon discharge she can be discharged on metoprolol tartrate twice did yet to be determine which be the appropriate dose. 3. She will be discharged and be followed up as an outpatient she will need a Cardiolite stress test and follow-up with shipyard helper. 4. Increasing dose of the metoprolol will help control blood pressure. 5. Jonathan springer be describes an outpatient pending approval of insurance. Otherwise she need to be on warfarin. Yet to be determined.
[2020-08-23] MEDS: METOPROLOL IR 25 MG TABLET PO ×2 (10:05→14:43)
[2020-08-23] MEDS: METOPROLOL IR 50 MG TABLET 75 MG PO (12:14)
--- NOTE | 2020-08-23 13:53 | PC.NURSE ---
pt remains in afib with cvr/rvr- increased po dose of metoprolol to 75mg po q 6 h - denies chest pain or pressure- [facility]
--- NOTE | 2020-08-23 14:10 | CM.DANOTE ---
DCP: Case received, EMR reviewed and met with patient. Introduced self and role. Was able to obtain information from patient regarding baseline activity level prior to hospitalization. DCP assessment completed with information currently available. Patient is a 75 year old female who admitted yesterday afternoon to the care of the hospitalist team. PCP: Medicare/[facility]. Patient came to the hospital via family vehicle secondary to having chest and should discomfort, as well rapid heart beat. Patient holds diagnosis of a-fib/RVR. She is in ICU on a cardiezem drip. Met with patient, angel. She was sitting in her chair next to her bed. She is independent at baseline. She resides in [place] with her spouse, Herrera. Patient indicated, she has never had these symptoms before, but is feeling somewhat better now. P: DCP to continue to follow for any needs. She should be able to go home when she is medically stable, after all testing is completed. Jody Bush RN/Interventional Radiologist
[2020-08-23] MEDS: APIXABAN 5 MG TABLET PO ×2 (14:42→21:21)
--- NOTE | 2020-08-23 17:47 | PC.NURSE ---
Patient converted to NSR at 16:33. Dr. Cary was notified and orders were given to get an EKG and to decrease metoprolol order to 50mg Q6H and to hold is HR is less than 60. Patient's BP has remained the same, 140s/60s. Patient has no concerns/complaints.
[2020-08-23] MEDS: SENNOSIDES 8.6 MG TABLET 17.2 MG PO (21:21)
[2020-08-23] MEDS: SIMVASTATIN 20 MG TABLET PO (21:21)
[2020-08-24] MEDS: METOPROLOL IR 50 MG TABLET PO (00:16)
[2020-08-24 00:22] VITALS: BP 121/55; PULSE 60; RESP 18; TEMP 36.6; O2SAT 98
[2020-08-24 04:21] VITALS: BP 144/63; PULSE 61; RESP 18; TEMP 36.6; O2SAT 99
[2020-08-24] MEDS: LEVOTHYROXINE 88 MCG TABLET PO (06:47)
--- NOTE | 2020-08-24 07:30 | PC.NURSE ---
Pt remains in SB arrythmia during night. HR 48-50. Morning Metoprolol held for HR. Pt denies chest pain and SOB. Pt states overall that she feels much improved.
[2020-08-24 08:00] VITALS: BP 141/65; PULSE 57; RESP 17; TEMP 36.6; O2SAT 98
--- NOTE | 2020-08-24 09:31 | CM.DPC ---
DCP: continued: d/c order for home is noted. Checked in now with pt and her . Pt says she is very eager to get home. She will see her PCP Dr. Blum in a week and have a followup appt with cardiology/[facility]. P: home today. Confirmed same with AIRAM Nielsen who will be completing the d/c process with pt.
[2020-08-24] MEDS: lisinopriL 5 MG TABLET PO (09:41)
[2020-08-24] MEDS: APIXABAN 5 MG TABLET PO (09:41)
--- NOTE | 2020-08-24 13:16 | PM.DDS.1 ---
Discharge Summary Hospital Course Date of Admission: 08/22/20 13:53 Primary care provider: Bebo Blum MD Objective Labs Result Diagrams: 08/22/20 09:50 08/22/20 09:50
--- NOTE | 2020-08-24 13:17 | PM.DS.1 ---
History of Present Illness History of Present Illness Chief complaint: chest and shoulder pain Discharge Providers Provider Date of admission: 08/22/20 13:53 Discharge Date: 08/24/20 Primary care physician: Bebo Guy MD Discharge provider: Bebo Guy MD Summary Hospital Course Discharge Diagnosis: 1. Atrial fibrillation. 2. Hypertension 3. Hyperlipidemia stable 4. Hypothyroidism stable 5. Anticoagulation. Hospital Course: Patient admitted through the ER for atrial fibrillation. She was initially given diltiazem which has shoulder down minimally. She is in switched over to metoprolol the seem to control her rhythm and her rate. She eventually ended up getting I had a metoprolol tartrate 50 mg every 6 hours with a couple extra dose of 25 mg. Approximately 4:30 p.m. yesterday afternoon she converted to normal sinus rhythm. And come and then also with some bradycardia her metoprolol dose was then held she had 1 dose of 50 mg at midnight last night and then 1 this morning. Patient remains in sinus rhythm she is asymptomatic. Loss questions about the whole further workup etcetera Exam Vital Signs (past 8 hours): - 08/24/20 08:00 Temperature 97.8 F Pulse Rate 57 L Respiratory Rate 17 Blood Pressure 141/65 H Pulse Oximetry 98 Oxygen Delivery Method Room Air Oxygen Flow Rate 0 Narrative Exam Narrative: She appears well. Lungs are clear heart has regular rhythm no murmur gallop early heart rate about 60 Objective Labs Result Diagrams: 08/22/20 09:50 08/22/20 09:50 Labs: Labs reviewed echocardiogram showed ejection fractions of 60% with normal valves and normal ventricular motion [facility] Medical History Chicken pox Fibroids (~1979) Measles Mumps Vision disorder Surgical History Anesthesia History of cholecystectomy History of cholecystectomy History of hysterectomy History of knee surgery Status post cholecystectomy Status post total abdominal hysterectomy and bilateral salpingo-oophorectomy (KARISHMA-BSO) Family History Father Heart disease Social History marital status: household members: spouse occupational status: previously employed Smoking Status: Never smoker alcohol intake: current substance use type: does not use Discharge Assessment & Plan Assessment and Plan Assessment: 1. Atrial fibrillation. 2. Numbers back sinus rhythm. 3. Needs further workup will schedule her for echocardiogram as outpatient Will schedule also force a Cardiolite stress test. Additionally refer to cardiology for evaluation of atrial fibrillation and need of anticoagulation meanwhile she will be on Eliquis 5 mg twice a day and metoprolol titrate 50 mg twice a day Discharge Plan Discharge Plan Patient Disposition: Home Provider Discharge Comment: appt w [facility]erson 1 week. appt w src card. cardiolyte stress test to be scheduled Discharge orders & Medications Prescriptions: New metoprolol tartrate 50 mg tablet 50 mg PO BID Qty: 60 RF: 5 Eliquis 5 mg tablet 5 mg PO BID Qty: 60 RF: 5 Continued levothyroxine 88 mcg tablet 88 mcg PO Q DAY Qty: 90 RF: 0 lisinopril 5 mg tablet 5 mg PO QDAY Qty: 90 RF: 0 simvastatin 20 mg tablet 20 mg PO HS Qty: 90 RF: 0 Follow up/Referrals: Bebo Guy MD [Primary Care Provider] - (per dr guy nurse ([facility]) they will call you with a appointment ) Discharge Health Status Multidrug resistant organism: No MDRO Diet/Activity/Treatments Diet: Diet as Tolerated Visit Report/Discharge Packet Instructions: DI for Atrial Fibrillation, Metoprolol, Apixaban Discharge Data Primary Care Provider: Bebo Guy Attending Provider: Bebo Guy
== END 2020-08-24 10:20 | disposition home or self-care (01) ==
LOC: ED 12:40 → ICU 14:44 → AC 08-23 09:28
PROVIDERS: Admitting Provider Family Medicine; Emergency Provider Emergency Medicine; PCP Family Medicine; Referring Provider Emergency Medicine; Visit Provider Family Medicine
DX: I48.91 Unspecified atrial fibrillation (principal); R07.9 Chest pain, unspecified; E78.5 Hyperlipidemia, unspecified; E03.9 Hypothyroidism, unspecified; Z11.59 Encounter for screening for other viral diseases
CPT/HCPCS: 36415; 71045; 80053; 82550; 83690; 83735; 84443; 84484; 85025; 85610; 85730; 87635; 87797; 93005; 93010; 93306; 96361; 96365; 96366; 96372; 96375; 96376; 99217; 99219; 99225; 99283; 99284; G0378; J1650

== ENCOUNTER 2020-10-22 07:17 | Emergency (ER) | payer MEDICARE, OTHER, SELFPAY ==
[2020-08-22 14:37] VITALS: BMI 30.7
[2020-10-22] VITALS (15 sets, daily range): BP systolic 94–186; BP diastolic 61–98; PULSE 19–136; RESP 10–158; TEMP 36.4; O2SAT 96–100; BMI 28.3
--- NOTE | 2020-10-22 07:34 | ED.ARRPALP ---
HPI - Arrhythmia/Palpitations General Chief Complaint: Arrhythmia/Palpitations Stated Complaint: AFIB Time Seen by Provider: 10/22/20 07:28 Source: patient and old records reviewed Mode of arrival: Ambulatory Limitations: no limitations History of Present Illness HPI narrative: Patient is a 75-year-old female with history of atrial fibrillation and is on metoprolol and Pradaxa presenting today in atrial fibrillation with RVR. She was actually at her primary care physician on October 20 and was noted to be in sinus rhythm at that time. She said she had some back discomfort last night that went away and again she noticed at this morning checked her heart rate and it was elevated in the 140s. She checks her heart rate at least twice a day it is usually 50-70. On the monitor she is in AFib with RVR rate 150. She does have some slight fluttering in her chest but really denies any chest pain only did back discomfort. MD complaint: rapid heart beat Severity: mild Context: occurred during rest Arrhythmia history: atrial fibrillation Associated symptoms: denies other symptoms Related Data Previous Rx's Medication Instructions Recorded metoprolol tartrate 50 mg PO BID #60 tab 08/24/20 dabigatran etexilate 150 mg capsule 150 mg PO BID #180 cap 09/08/20 levothyroxine 88 mcg tablet 88 mcg PO Q DAY #90 tab 10/20/20 simvastatin 20 mg tablet 20 mg PO HS #90 tab 10/20/20 Allergies Allergy/AdvReac Type Severity Reaction Status Date / Time Sulfa (Sulfonamide AdvReac Severe VOMITING Verified 10/20/20 10:30 Antibiotics) [SULFA (SULFONAMIDE ANTIBIOTICS)] ANESTHESIA AdvReac Severe Uncoded 10/20/20 10:30 nausea Review of Systems Review of Systems Narrative: GENERAL: Denies chills, fatigue, malaise, fever, sweats, travel HEENT: Denies sinus pain, ear pain, sore throat, difficulty swallowing, neck pain RESPIRATORY: Denies dyspnea, cough, wheezing, hemoptysis, sputum. CARDIOVASCULAR: See HPI GASTROINTESTINAL: Denies nausea, vomiting, abdominal pain, diarrhea, constipation, melena. : Denies dysuria, frequency, incontinence, hematuria, urinary retention, flank pain. MUSCULOSKELETAL: Denies weakness, joint pain, or bony pain SKIN: No rash, no erythema, no pruritus NEUROLOGIC: Denies weakness, dizziness, headache, numbness, change in speech, confusion PSYCHIATRIC: No concerning psychosocial issues. 12 point review of systems is negative except for those stated above and HPI Patient History Medical History Anticoagulation adequate with anticoagulant therapy Chicken pox Fibroids (~1979) Hypothyroidism Influenza Measles Mumps Sepsis Vision disorder Surgical History Anesthesia History of cholecystectomy History of cholecystectomy History of hysterectomy History of knee surgery Status post cholecystectomy Status post total abdominal hysterectomy and bilateral salpingo-oophorectomy (KARISHMA-BSO) Family History Father Heart disease Social History marital status: household members: spouse occupational status: previously employed Smoking Status: Never smoker alcohol intake: current substance use type: does not use Smoking Status: Never smoker alcohol intake frequency: 0-2 drinks per day Exam Initial Vital Signs Initial Vital Signs: Vital Signs Temperature 97.6 F 10/22/20 07:25 Pulse Rate 19 L 10/22/20 07:25 Respiratory Rate 158 H 10/22/20 07:25 Blood Pressure 171/98 H 10/22/20 07:25 Pulse Oximetry 99 10/22/20 07:25 GENERAL: Alert pleasant 75-year-old female and in [no acute] distress. HEENT: Head atraumatic,EOMI, pupils reactive, face symmetric, [moist] mucous membranes CARDIOVASCULAR: Tachycardic irregularly irregular RESPIRATORY: Breath sounds equal bilaterally, no wheezes rales or rhonchi. ABDOMEN: Soft, nontender. Normoactive bowel sounds all 4 quadrants. No guarding or rebound. EXTREMITIES: Normal range of motion, no clubbing or edema. Neurovascularly intact NEUROLOGICAL: Alert and oriented x4.Normal gait and speech. Cranial nerves II through XII grossly intact. SKIN: Warm, dry, no laceration, no petechiae, no rashes or lesions. Procedures Cardioversion Consent Signed: Yes Stability: Stable Number of attempts (shocks): 1 Joules used: 150 Cardiac rhythm post-cardioversion: NSR Procedural Sedation Consent signed: Yes Time out performed: Yes Indication: cardioversion ASA Class: I Mallampati Airway Classification: Class I Preparation: conveyor monitor applied, pulse oximeter, capnometry used and supplemental O2 applied IV Etomidate dose (mg): 9 Intraservice time/total sedation time (min): 15 ED Sedation Level: Moderate (Concious) Patient Tolerated Procedure: Well Complications: none Course Orders Ordered: ED Orders 10/22/20 07:35 Complete Blood Count AUTO DIFF Stat Comprehensive Metabolic Panel Stat Magnesium Stat NT-proBNP (BNP-Adult 18+) Stat Partial Thromboplastin Time Stat Prothrombin Time INR Stat Troponin & CK Cardiac Panel Stat 10/22/20 07:37 XR chest 1V Stat EKG-12 Lead Stat 10/22/20 09:02 COVID19 Stat 10/22/20 09:48 EKG-12 Lead Routine Discontinued Medications Diltiazem HCl (Diltiazem 5 Mg/Ml Sdv) 10 mg IV NOW ONE Stop: 10/22/20 07:38 Last Admin: 10/22/20 07:49 Dose: 10 mg Documented by: RODERICK Etomidate (Etomidate 2 Mg/Ml 10 Ml Vial) 7.3 mg 0.1 mg/kg (7.3 mg) IV NOW ONE Stop: 10/22/20 09:14 Last Admin: 10/22/20 09:49 Dose: 7 mg Documented by: RODERICK Metoprolol Tartrate (Metoprolol Ir 25 Mg Tablet) 50 mg PO NOW ONE Stop: 10/22/20 07:38 Last Admin: 10/22/20 07:48 Dose: 50 mg Documented by: RODERICK Vital Signs Vital signs: Vital Signs - 8 hr 10/22/20 07:25 10/22/20 07:53 10/22/20 07:55 Temperature 97.6 F Pulse Rate 19 L 114 H 101 H Respiratory Rate 158 H 17 Blood Pressure 171/98 H 117/66 Blood Pressure [Right Arm] Pulse Oximetry 99 98 10/22/20 08:00 10/22/20 08:10 10/22/20 08:24 Temperature Pulse Rate 98 H 98 H 99 H Respiratory Rate 13 18 15 Blood Pressure 107/61 94/69 115/68 Blood Pressure [Right Arm] Pulse Oximetry 97 98 97 10/22/20 08:30 10/22/20 09:00 10/22/20 09:28 Temperature Pulse Rate 101 H 131 H 134 H Respiratory Rate 14 19 10 L Blood Pressure 121/67 186/81 H Blood Pressure [Right Arm] Pulse Oximetry 97 99 99 10/22/20 09:30 10/22/20 09:40 Temperature Pulse Rate 136 H 71 Respiratory Rate 11 L 12 Blood Pressure 138/73 Blood Pressure [Right Arm] 138/73 Pulse Oximetry 100 98 MDM - Arrhythmia/Palpitations Lab Data Attestation: I reviewed the patient's lab results. Result diagrams: 10/22/20 07:35 10/22/20 07:35 Labs: Lab Results 10/22/20 10/22/20 10/22/20 Range/Units 07:35 07:35 07:35 WBC 5.4 (4.5-11.0) X10^3/uL RBC 4.40 (4.0-5.2) X10^6/uL Hgb 13.4 (12.0-16.0) g/dL Hct 39.7 (36-46) % MCV 90.4 (80-100) fL MCH 30.4 (26-34) PG MCHC 33.7 (30-36) % RDW 12.8 (11.6-14.8) % Plt Count 231 (150-400) X10^3/uL Neut % (Auto) 50.4 (50-75) % Lymph % (Auto) 32.1 (25-40) % Harding % (Auto) 13.4 (3-14) % Eos % (Auto) 3.1 (2-4) % Baso % (Auto) 1.0 (0-2) % Neut # (Auto) 2700 (8809-5234) /uL Lymph # (Auto) 1700 (2721-3123) /uL Harding # (Auto) 700 (0-900) /uL Eos # (Auto) 200 (0-450) /uL Baso # (Auto) 100 (0-100) /uL PT 13.1 H (10.1-12.7) SECONDS INR 1.1 (0.9-1.3) APTT 34 (26.4-36.2) SECONDS Sodium 139 (137-145) mmol/L Potassium 4.0 (3.4-5.1) mmol/L Chloride 105 (98-107) mmol/L Carbon Dioxide 27 (22-32) mmol/L BUN 13 (7-17) mg/dL Creatinine 0.85 (0.52-1.04) mg/dL Estimated GFR > 60.0 (>60) mL/min BUN/Creatinine Ratio 15.3 (6-22) Glucose 136 H (80-110) mg/dL Calcium 9.1 (8.4-10.2) mg/dL Magnesium 2.0 (1.6-2.3) mg/dL Total Bilirubin 0.4 (0.2-1.3) mg/dL AST 25 (14-36) IU/L ALT 17 (<35) IU/L Alkaline Phosphatase 40 (38-126) U/L Total Creatine Kinase 37 (30-135) U/L CK-MB (CK-2) TNP CK-MB (CK-2) Rel Index TNP Troponin I < 0.012 (0.01-0.034) ng/mL NT-Pro-B Natriuret Pep 193 (<450) pg/mL Total Protein 7.5 (6.3-8.2) g/dL Albumin 4.3 (3.5-5.0) g/dL Globulin 3.2 (1.7-4.1) g/dL Albumin/Globulin Ratio 1.3 (1.0-2.8) SARS-CoV-2 (PCR) (Negative) 10/22/20 Range/Units 09:02 WBC (4.5-11.0) X10^3/uL RBC (4.0-5.2) X10^6/uL Hgb (12.0-16.0) g/dL Hct (36-46) % MCV (80-100) fL MCH (26-34) PG MCHC (30-36) % RDW (11.6-14.8) % Plt Count (150-400) X10^3/uL Neut % (Auto) (50-75) % Lymph % (Auto) (25-40) % Harding % (Auto) (3-14) % Eos % (Auto) (2-4) % Baso % (Auto) (0-2) % Neut # (Auto) (4456-2012) /uL Lymph # (Auto) (2313-5046) /uL Harding # (Auto) (0-900) /uL Eos # (Auto) (0-450) /uL Baso # (Auto) (0-100) /uL PT (10.1-12.7) SECONDS INR (0.9-1.3) APTT (26.4-36.2) SECONDS Sodium (137-145) mmol/L Potassium (3.4-5.1) mmol/L Chloride (98-107) mmol/L Carbon Dioxide (22-32) mmol/L BUN (7-17) mg/dL Creatinine (0.52-1.04) mg/dL Estimated GFR (>60) mL/min BUN/Creatinine Ratio (6-22) Glucose (80-110) mg/dL Calcium (8.4-10.2) mg/dL Magnesium (1.6-2.3) mg/dL Total Bilirubin (0.2-1.3) mg/dL AST (14-36) IU/L ALT (<35) IU/L Alkaline Phosphatase (38-126) U/L Total Creatine Kinase (30-135) U/L CK-MB (CK-2) CK-MB (CK-2) Rel Index Troponin I (0.01-0.034) ng/mL NT-Pro-B Natriuret Pep (<450) pg/mL Total Protein (6.3-8.2) g/dL Albumin (3.5-5.0) g/dL Globulin (1.7-4.1) g/dL Albumin/Globulin Ratio (1.0-2.8) SARS-CoV-2 (PCR) Negative (Negative) Point of Care Testing Test Results Not applicable Imaging Data Chest x-ray: Radiologist's Impresson: PROCEDURE: XR CHEST 1V INDICATIONS: chest pain TECHNIQUE: One view of the chest was acquired. COMPARISON: [facility], , XR CHEST 1V, 08/22/2020, 9:53. FINDINGS: Surgical changes and devices: None. Lungs and pleura: Lungs are clear. No pleural effusions or pneumothorax. Mediastinum: Mediastinal contours appear normal. Heart size is minimally prominent. Bones and chest wall: No suspicious bony lesions. Overlying soft tissues appear unremarkable. IMPRESSION: No acute pulmonary process. Dictated by: Deirdre Rivers M.D. on 10/22/2020 at 8:19 Approved by: Deirdre Rivers M.D. on 10/22/2020 at 8:20 ECG Data Attestation: I personally reviewed and interpreted this ECG as follows: Prior ECG tracings: available for review Interpretation: EKG 1. Atrial fibrillation rate [address] changes similar to previous EKG 67 p.r. interval 122 QRS [address] changes or T-wave inversions MDM Narrative Medical decision making narrative: Patient is on Pradaxa she is actually supposed to be switching to Eliquis tonight she has not missed a dose of Pradaxa she has been on it since August. She has had symptoms for less than 24 hours and is a good candidate for cardioversion. Her heart rate did slow down with her home dose of metoprolol and 1 dose of Cardizem 10 however she remains in AFib and is starting to go back up. She agrees to cardioversion consent is signed and had a successful cardioversion. She has an appointment with Cardiology next month. At this time follow-up with PCP and Cardiology as scheduled. Discharge Plan Departure Patient Disposition: Home Clinical Impression: Atrial fibrillation Qualifiers: Atrial fibrillation type: paroxysmal Qualified Code(s): I48.0 - Paroxysmal atrial fibrillation Instructions: DI for Atrial Fibrillation Activity Restrictions/Additional Instructions: *You have been diagnosed with atrial fibrillation *What to do: Please take all medications as prescribed. Follow-up with cardiology as scheduled *Continue to take medications as directed *Follow up with your primary care provider in 2-3 days *Return to ER if you should have increasing chest pain, back pain, heart rate greater than 110 and irregular or any new, worsening or concerning symptoms Prescriptions: No Action Pradaxa 150 mg capsule 150 mg PO BID Qty: 180 RF: 5 levothyroxine 88 mcg tablet 88 mcg PO Q DAY Qty: 90 RF: 3 simvastatin 20 mg tablet 20 mg PO HS Qty: 90 RF: 3 metoprolol tartrate 50 mg tablet 50 mg PO BID Qty: 60 RF: 5 Referrals: Manjinder Lopez MD [Primary Care Provider] -
--- NOTE | 2020-10-22 07:37 | DI.RAD.S_ITS ---
PROCEDURE: XR CHEST 1V INDICATIONS: chest pain TECHNIQUE: One view of the chest was acquired. COMPARISON: [facility], CR, XR CHEST 1V, 08/22/2020, 9:53. FINDINGS: Surgical changes and devices: None. Lungs and pleura: Lungs are clear. No pleural effusions or pneumothorax. Mediastinum: Mediastinal contours appear normal. Heart size is minimally prominent. Bones and chest wall: No suspicious bony lesions. Overlying soft tissues appear unremarkable. IMPRESSION: No acute pulmonary process. Dictated by: Deirdre Rivers M.D. on 10/22/2020 at 8:19 Approved by: Deirdre Rivers M.D. on 10/22/2020 at 8:20
[2020-10-22] MEDS: METOPROLOL IR 25 MG TABLET 50 MG PO (07:48)
[2020-10-22] MEDS: dilTIAZem 5 MG/ML SDV 10 MG IV (07:49)
[2020-10-22 08:03] LABS: Add Manual Diff / Slide Review NO; Basophils Absolute Auto 100 /uL (0-100); Eosinophils Absolute Auto 200 /uL (0-450); Eosinophils Percent Auto 3.1 % (2-4); Hematocrit 39.7 % (36-46); Hemoglobin 13.4 g/dL (12.0-16.0); Lymphocytes Absolute Auto 1700 /uL (1100-4500); Lymphocytes Percent Auto 32.1 % (25-40); Mean Corpuscular HGB Conc 33.7 % (30-36); Mean Corpuscular Hemoglobin 30.4 PG (26-34); Mean Corpuscular Volume 90.4 fL (80-100); Monocytes Absolute Auto 700 /uL (0-900); Monocytes Percent Auto 13.4 % (3-14); Neutrophils Absolute Auto 2700 /uL (1500-7000); Neutrophils Percent Auto 50.4 % (50-75); Platelet Count 231 X10^3/uL (150-400); Red Cell Distribution Width 12.8 % (11.6-14.8); White Blood Cell Count 5.4 X10^3/uL (4.5-11.0)
[2020-10-22 08:04] LABS: INR 1.1 (0.9-1.3); Prothrombin Time 13.1 SECONDS (10.1-12.7)
[2020-10-22 08:07] LABS: PTT Partial Thromboplastin Tim 34 SECONDS (26.4-36.2)
[2020-10-22 08:09] LABS: Alanine Aminotransferase 17 IU/L (<35); Albumin 4.3 g/dL (3.5-5.0); Albumin Globulin Ratio 1.3 (1.0-2.8); Alkaline Phosphatase 40 U/L (38-126); Aspartate Aminotransferase 25 IU/L (14-36); BUN Creatinine Ratio 15.3 (6-22); Bilirubin Total 0.4 mg/dL (0.2-1.3); Blood Urea Nitrogen 13 mg/dL (7-17); Calcium 9.1 mg/dL (8.4-10.2); Carbon Dioxide 27 mmol/L (22-32); Chloride 105 mmol/L (98-107); Creatine Kinase 37 U/L (30-135); Estimated Glomerular Filt Rate > 60.0 mL/min (>60); Globulin 3.2 g/dL (1.7-4.1); Glucose 136 mg/dL (80-110); HEMOLYSIS 43 (0-50); Sodium 139 mmol/L (137-145); Total Protein 7.5 g/dL (6.3-8.2)
[2020-10-22 08:21] LABS: NT-proBNP (BNP-Adult 18+) 193 pg/mL (<450); Troponin I < 0.012 ng/mL (0.01-0.034)
--- NOTE | 2020-10-22 08:41 | PC.NURSE ---
Pt ambulated to restroom without difficultly. Pt expressed resolution of chest pain.
[2020-10-22 09:22] LABS: COVID19 -Nasal RAPID Negative (Negative)
[2020-10-22] MEDS: ETOMIDATE 2 MG/ML 10 ML VIAL 7.3 MG IV (09:49)
--- NOTE | 2020-10-22 09:50 | PC.NURSE ---
Pt tolerated cardioversion well, pt is awake, c/o no pain, A&Ox4, calm at bedside, call light within reach.
== END 2020-10-22 10:24 | disposition home or self-care (01) ==
PROVIDERS: Emergency Provider Emergency Medicine; PCP Family Medicine
DX: I48.0 Paroxysmal atrial fibrillation (principal); Z79.01 Long term (current) use of anticoagulants; R07.9 Chest pain, unspecified; E03.9 Hypothyroidism, unspecified; Z20.822 Contact with and (suspected) exposure to COVID-19
CPT/HCPCS: 36415; 71045; 80053; 82550; 83735; 83880; 84484; 85025; 85610; 85730; 87635; 92960; 93005; 96374; 99152; 99284; 99285; C9803

== ENCOUNTER → 2020-11-02 15:06 | Outpatient (CLI) | payer MEDICARE, OTHER, SELFPAY ==
[2020-08-22 14:37] VITALS: BMI 30.7
[2020-11-02 15:44] LABS: Add Manual Diff / Slide Review NO; Basophils Absolute Auto 100 /uL (0-100); Basophils Percent Auto 1.2 % (0-2); Eosinophils Absolute Auto 100 /uL (0-450); Eosinophils Percent Auto 1.5 % (2-4); Hematocrit 37.6 % (36-46); Lymphocytes Absolute Auto 1500 /uL (1100-4500); Lymphocytes Percent Auto 28.2 % (25-40); Mean Corpuscular HGB Conc 34.7 % (30-36); Mean Corpuscular Hemoglobin 30.7 PG (26-34); Mean Corpuscular Volume 88.6 fL (80-100); Monocytes Absolute Auto 500 /uL (0-900); Monocytes Percent Auto 10.2 % (3-14); Neutrophils Absolute Auto 3000 /uL (1500-7000); Neutrophils Percent Auto 58.9 % (50-75); Platelet Count 254 X10^3/uL (150-400); Red Blood Cell Count 4.25 X10^6/uL (4.0-5.2); Red Cell Distribution Width 12.9 % (11.6-14.8); White Blood Cell Count 5.1 X10^3/uL (4.5-11.0)
[2020-11-02 15:56] LABS: BUN Creatinine Ratio 12.5 (6-22); Blood Urea Nitrogen 12 mg/dL (7-17); Calcium 9.3 mg/dL (8.4-10.2); Carbon Dioxide 31 mmol/L (22-32); Chloride 105 mmol/L (98-107); Cholesterol 161 mg/dL (140-199); Estimated Glomerular Filt Rate 56.4 mL/min (>60); Glucose 108 mg/dL (80-110); HDL Cholesterol 66 mg/dL (40-60); HEMOLYSIS < 15 (0-50); LDL Cholesterol Calculated 80 mg/dL (<100); Potassium 3.9 mmol/L (3.4-5.1); Sodium 140 mmol/L (137-145); Triglycerides 73 mg/dL (35-150)
== END ==
PROVIDERS: PCP Family Medicine; Referring Provider Internal Medicine Cardiovascular Disease; Visit Provider Internal Medicine Cardiovascular Disease
DX: I10 Essential (primary) hypertension (principal); E78.2 Mixed hyperlipidemia
CPT/HCPCS: 36415; 80048; 80061; 85025

== ENCOUNTER → 2020-11-17 10:48 | Outpatient (CLI) | payer MEDICARE, OTHER, SELFPAY ==
[2020-08-22 14:37] VITALS: BMI 30.7
[2020-11-17 13:17] LABS: COVID19 -Nasal RAPID Negative (Negative)
== END ==
PROVIDERS: PCP Family Medicine; Visit Provider Nurse Practitioner Family
DX: Z20.822 Contact with and (suspected) exposure to COVID-19 (principal); Z01.812 Encounter for preprocedural laboratory examination
CPT/HCPCS: 87635; C9803

== ENCOUNTER → 2020-11-19 09:31 | Outpatient (CLI) | payer MEDICARE, OTHER, SELFPAY ==
[2020-08-22 14:37] VITALS: BMI 30.7
--- NOTE | 2020-11-19 09:32 | DI.NM.S_ITS ---
PROCEDURE: NM GAIL PERF SPECT REST & STR Rest and exercise myocardial perfusion SPECT with gated imaging and ejection fraction RADIOPHARMACEUTICAL: 12.3 mCi Tc-99m sestamibi IV at rest and 26.8 mCi Tc-99m sestamibi IV at peak exercise. A two day-protocol was performed. INDICATIONS: new onset Afib TECHNIQUE: Radiopharmaceutical was injected at peak stress test, and also at rest. SPECT images were obtained. SPECT myocardial perfusion images were displayed in short axis, horizontal long axis, and vertical long axis views. Gated images were reviewed using Finding [employer] 3 software. COMPARISON: None. CARDIAC STRESS: A standard Bert treadmill exercise tolerance test was performed by the patient under the supervision of an attending staff. The patient exercised for 3 minutes and 2 seconds; functional aerobic impairment (CARIDAD) is +39%. Hemodynamic data: There is normal blood pressure and heart rate response to exercise stress. Patient achieved 111% of maximum predicted heart rate at peak exercise. Symptoms: Patient denied chest pain during exercise. EKG: Resting ECG shows sinus rhythm with non-specific T wave changes. No diagnostic EKG changes of ischemia with exercise; no significant ectopy. FINDINGS: Raw data: There is good myocardial labeling by radiotracer. No significant motion artifacts. Lbil-jc-gmura ratio is 0.27 (normal is less than 0.38 for sestamibi tracer, and less than 0.50 for thallium tracer). Left ventricle function: Gated images demonstrate normal left ventricle wall thickening. No segmental wall motion abnormality. No transient ischemic dilation; TID is 0.96 (normal less than 1.3). The left ventricle resting end-diastolic volume is 67 mL. Left ventricle stress ejection fraction is 92%; normal values are above 45%. Myocardial perfusion: There is normal distribution of activity in the left and right ventricular myocardium. No fixed or reversible perfusion defects. IMPRESSION: Low risk, normal treadmill nuclear stress test 1) No perfusion evidence of ischemia or infarction. 2) Normal left ventricular size, wall motion, and systolic function (EF post stress 92%). 3) No ECG evidence of ischemia. 4) No angina during the study. 5) Reduced exercise capacity (4.6 METs, CARIDAD +39%). Target heart rate achieved. Appropriate BP response to exercise. 6) No prior nuclear stress test available for comparison. Dictated by: Karis Lam MD on 11/19/2020 at 17:22 Approved by: Karis Lam MD on 11/19/2020 at 17:27
--- NOTE | 2020-11-19 14:14 | PM.TREADMILL ---
Cardiac Stress Test Report Referral & Results Date Patient Seen: 11/19/20 Requesting provider: Bebo Blum Indication: Atrial fibrillation Rest ECG: Unremarkable, frequent PACs Procedure Note: Today following both written and verbal informed consent the patient was exercised according to a standard Bert protocol patient went for a total of 3 minutes 2 seconds achieving a maximum heart rate of 159 maximum systolic blood pressure of 182. This is approximately 4.6 METS. Exercise was terminated at this point because of patient was unable to continue any longer or faster. Patient was also given Cardiolite through a previously started Hep-Lock IV by the diagnostic imaging staff approximately 1 minute prior to the cessation of exercise. Patient was quickly tachycardic likely due to having held her beta-ayden prior to today's test. Also had frequent PACs although clearly was in the sinus rhythm and no atrial fibrillation No other dysrhythmias No ST-T segment changes noted Function aerobic impairment rates 15% the sedentary scale Impression: No evidence of ischemia, please see perfusion imaging report as well. Limited exercise capacity. Please note: Actual ECG tracings can be found in the PACS system.
== END ==
PROVIDERS: PCP Family Medicine; Referring Provider Family Medicine; Visit Provider Family Medicine
DX: I48.91 Unspecified atrial fibrillation (principal)
CPT/HCPCS: 78452; 93016; 93017; 93018; A9502

== ENCOUNTER 2020-11-27 22:05 | Emergency (ER) | payer MEDICARE, OTHER, SELFPAY ==
[2020-08-22 14:37] VITALS: BMI 30.7
[2020-11-27 22:15] VITALS: BP 198/89; PULSE 78; RESP 14; TEMP 36.3; O2SAT 97; BMI 28.3
[2020-11-27] MEDS: ONDANSETRON 4 MG ODT SL (22:29)
[2020-11-27 23:03] VITALS: BP 147/69; PULSE 79; O2SAT 95
[2020-11-27 23:30] VITALS: BP 152/76; PULSE 64; RESP 14; O2SAT 96
[2020-11-28] VITALS (9 sets, daily range): BP systolic 154–168; BP diastolic 70–83; PULSE 60–79; RESP 9–19; O2SAT 93–97
--- NOTE | 2020-11-28 01:11 | ED_ITS ---
HPI - General Adult General Chief complaint: Hypertension Stated complaint: elevated BP, anxiety meds making her sick Time Seen by Provider: 11/28/20 00:05 Source: patient Mode of arrival: Ambulatory Limitations: no limitations History of Present Illness HPI narrative: 75-year-old woman with a history of hypertension hyperlipidemia hypothyroidism and anxiety who was recently started on escitalopram 10 mg to help control anxiety. She took a single dose last night and has been nauseated to the point of feeling like she is going to vomit, increasingly anxious with elevated blood pressure and is dramatically concerned that the escitalopram has cause all of these symptoms. She reports general malaise and significant increased anxiety today. No headaches, no dyspnea, no palpitations, no chest pain no acute neurologic findings. She has not taken a dose of the escitalopram and she does find her anxiety continues to be problematic. Related Data Home Medications Medication Instructions Recorded Confirmed lisinopril 5 mg tablet 5 mg PO DAILY 11/10/20 11/24/20 Previous Rx's Medication Instructions Recorded metoprolol tartrate 50 mg PO BID #60 tab 08/24/20 dabigatran etexilate 150 mg capsule 150 mg PO BID #180 cap 09/08/20 levothyroxine 88 mcg tablet 88 mcg PO Q DAY #90 tab 10/20/20 simvastatin 20 mg tablet 20 mg PO HS #90 tab 10/20/20 escitalopram oxalate 10 mg tablet 10 mg PO DAILY #45 tab 11/24/20 lorazepam [Ativan] 0.5 mg PO DAILY PRN #14 tab 11/28/20 ondansetron 4 mg PO Q8H PRN #30 tab 11/28/20 Allergies Allergy/AdvReac Type Severity Reaction Status Date / Time Sulfa (Sulfonamide AdvReac Severe VOMITING Verified 11/24/20 11:24 Antibiotics) [SULFA (SULFONAMIDE ANTIBIOTICS)] ANESTHESIA AdvReac Severe Uncoded 11/24/20 11:24 nausea Review of Systems Review of Systems Narrative: Remainder of review of systems including constitutional, ENT, cardiovascular, respiratory, GI, , musculoskeletal, skin, neurologic and psychiatric systems reviewed and are unremarkable except as noted in HPI. Patient History Medical History Anticoagulation adequate with anticoagulant therapy Chicken pox Fibroids (~1979) Hypothyroidism Influenza Measles Mumps Sepsis Vision disorder Surgical History Anesthesia History of cholecystectomy History of cholecystectomy History of hysterectomy History of knee surgery Status post cholecystectomy Status post total abdominal hysterectomy and bilateral salpingo-oophorectomy (KARISHMA-BSO) Family History Father Heart disease Social History marital status: household members: spouse occupational status: previously employed Smoking Status: Never smoker alcohol intake: current substance use type: does not use Smoking Status: Never smoker alcohol intake frequency: 0-2 drinks per day Substance Use Type: does not use Exam Narrative Exam Narrative: General: Healthy appearing, in no acute distress. Able to give a complete and coherent history. Well-nourished well-developed HEENT: Moist mucous membranes, normal sclera with reactive pupils, Respiratory: Lungs are clear to auscultation, no wheezing no rales no rhonchi. Full and symmetrical air movement Cardiac: Regular rate and rhythm no murmurs no bruits Abdomen: Soft, nontender, good bowel tones, no flank pain Skin: Warm and dry, no rashes Neurologic: Grossly neurologically intact with no obvious asymmetries or ab normalities Extremities: No trauma, well perfused Psych: Cooperative, anxious affect Initial Vital Signs Initial Vital Signs: Vital Signs Temperature 97.4 F L 11/27/20 22:15 Pulse Rate 78 11/27/20 22:15 Respiratory Rate 14 11/27/20 22:15 Blood Pressure 198/89 H 11/27/20 22:15 Pulse Oximetry 97 11/27/20 22:15 Course Orders Ordered: ED Orders 11/27/20 22:43 EKG-12 Lead Routine Ondansetron HCl (Ondansetron 4 Mg Odt) 4 mg SL Q4HR PRN PRN Reason: Nausea Last Admin: 11/27/20 22:29 Dose: 4 mg Documented by: ZAHEER Discontinued Medications Lorazepam (Lorazepam 0.5 Mg Tablet) 0.5 mg PO NOW ONE Stop: 11/28/20 01:36 Last Admin: 11/28/20 01:53 Dose: 0.5 mg Documented by: ARTHUR Ondansetron HCl (Ondansetron 4 Mg Odt Prepack) 1 bottle MISC SEEINSTR ONE Stop: 11/28/20 01:36 Last Admin: 11/28/20 01:53 Dose: 1 bottle Documented by: ARTHUR Ondansetron HCl (Ondansetron 4 Mg Odt) 4 mg SL NOW ONE Stop: 11/28/20 03:06 Last Admin: 11/28/20 03:10 Dose: 4 mg Documented by: ZAHEER Vital Signs Vital signs: Vital Signs - 8 hr 11/27/20 22:15 11/27/20 23:03 11/27/20 23:30 Temperature 97.4 F L Pulse Rate 78 79 64 Respiratory Rate 14 14 Blood Pressure 198/89 H 147/69 H 152/76 H Pulse Oximetry 97 95 96 11/28/20 00:00 11/28/20 00:30 11/28/20 01:00 Temperature Pulse Rate 63 62 60 Respiratory Rate 15 16 14 Blood Pressure 164/75 H 165/70 H 155/71 H Pulse Oximetry 96 95 96 11/28/20 01:30 11/28/20 01:53 11/28/20 01:59 Temperature Pulse Rate 74 79 72 Respiratory Rate 18 18 19 Blood Pressure 168/83 H 154/78 H Pulse Oximetry 97 93 97 11/28/20 03:00 11/28/20 03:03 11/28/20 03:30 Temperature Pulse Rate 67 69 Respiratory Rate 9 L 15 Blood Pressure 163/73 H 164/72 H Pulse Oximetry 96 96 Medical Decision Making Medical Records Medical records reviewed: Yes I reviewed the patient's medical records. Lab Data Lab results reviewed: Yes I reviewed the patient's lab results. Labs: Urine Dip Bedside Urine Glucose Negative Bedside Urine Bilirubin - Negative Bedside Urine Ketone - Negative Urine Specific [place] 1.030 Bedside Urine Occult Blood - Negative Bedside Urine pH 6.0 Bedside Urine Protein - Negative Bedside Urine Urobilinogen - Negative Bedside Urine Nitrite - Negative Bedside Urine Leukocytes - Negative Esterase Point of care testing: Urine Dip Bedside Urine Glucose Negative Bedside Urine Bilirubin - Negative Bedside Urine Ketone - Negative Urine Specific [place] 1.030 Bedside Urine Occult Blood - Negative Bedside Urine pH 6.0 Bedside Urine Protein - Negative Bedside Urine Urobilinogen - Negative Bedside Urine Nitrite - Negative Bedside Urine Leukocytes - Negative Esterase ECG Data Interpretation: Sinus rhythm at a rate of [address] T wave changes Normal axis MDM Narrative Medical decision making narrative: 75-year-old woman with significant anxiety over single dose of 10 mg of escitalopram. Feels that is causing dramatic nausea she is distressed that she is unable to vomit with the dramatic nausea and is experiencing elevated high blood pressure without end-organ symptoms. In the emergency department exam is unremarkable. She is given a single dose of 0.5 mg of Ativan with relief of her anxiety. Her nausea was resolved with Z ofran and she was terrified that this would return. She was given a dose of IV Reglan and also reassured that the additional Ativan can be helpful with controlling nausea. Recommended that she did not continue the escitalopram, she is given a small bridging dose of Ativan and instructed to follow-up with her primary care physician. She will continue all of her usual blood pressure medications and continue to trend her blood pressure readings. She is safe for discharge Discharge Plan Departure Patient Disposition: Home Clinical Impression: Essential hypertension, Anxiety, Nausea Instructions: DI for High Blood Pressure, DI for Anxiety -- Adult, DI for Nausea -- Adult Activity Restrictions/Additional Instructions: Thank you for coming in tonight. Please continue your 5 mg of lisinopril to control your blood pressure as well as the metoprolol. Check your blood pressure 2 to 3 hours after taking these medications and write down the numbers to review with her primary care doctor. Please do not check your blood pressure if you are anxious unless you are actively having chest pain, severe headache or neurologic changes As a bridge, I have given you had a small prescription for Ativan. This is a an anxiety medication that you can take in the evenings when you feel that your anxiety is increasing. This is a temporary solution, please discuss better and longer term solutions with her primary care physician For your nausea, I have given you a prescription for ondansetron to use at home as needed. If you feel that things are worse, please return to the ER Prescriptions: New lorazepam [Ativan] 0.5 mg tablet 0.5 mg PO DAILY PRN (Reason: anxiety) Qty: 14 RF: 0 ondansetron 4 mg tablet,disintegrating 4 mg PO Q8H PRN (Reason: nausea and vomiting) Qty: 30 RF: 0 No Action Pradaxa 150 mg capsule 150 mg PO BID Qty: 180 RF: 5 lisinopril 5 mg tablet 5 mg PO DAILY RF: 0 escitalopram oxalate [Lexapro] 10 mg tablet 10 mg PO DAILY Qty: 45 RF: 0 levothyroxine 88 mcg tablet 88 mcg PO Q DAY Qty: 90 RF: 3 simvastatin 20 mg tablet 20 mg PO HS Qty: 90 RF: 3 metoprolol tartrate 50 mg tablet 50 mg PO BID Qty: 60 RF: 5 Referrals: Manjinder Lopez MD [Primary Care Provider] -
[2020-11-28] MEDS: ONDANSETRON 4 MG ODT PREPACK 1 BOTTLE MISC (01:53)
[2020-11-28] MEDS: LORazepam 0.5 MG TABLET PO (01:53)
[2020-11-28] MEDS: ONDANSETRON 4 MG ODT SL (03:10)
== END 2020-11-28 03:50 | disposition home or self-care (01) ==
PROVIDERS: Emergency Provider Emergency Medicine; PCP Family Medicine
DX: I10 Essential (primary) hypertension (principal); F41.9 Anxiety disorder, unspecified; R11.2 Nausea with vomiting, unspecified
CPT/HCPCS: 81003; 93005; 99282; 99283

== ENCOUNTER → 2021-01-21 09:56 | Outpatient (CLI) | payer MEDICARE, OTHER, SELFPAY ==
[2020-08-22 14:37] VITALS: BMI 30.7
[2021-01-21 10:42] LABS: Add Manual Diff / Slide Review NO; Basophils Absolute Auto 100 /uL (0-100); Eosinophils Absolute Auto 100 /uL (0-450); Eosinophils Percent Auto 2.2 % (2-4); Hematocrit 36.3 % (36-46); Hemoglobin 12.4 g/dL (12.0-16.0); Lymphocytes Absolute Auto 1200 /uL (1100-4500); Lymphocytes Percent Auto 22.7 % (25-40); Mean Corpuscular HGB Conc 34.2 % (30-36); Mean Corpuscular Hemoglobin 30.3 PG (26-34); Mean Corpuscular Volume 88.6 fL (80-100); Monocytes Absolute Auto 500 /uL (0-900); Neutrophils Absolute Auto 3300 /uL (1500-7000); Neutrophils Percent Auto 65.1 % (50-75); Platelet Count 218 X10^3/uL (150-400); Red Cell Distribution Width 13.5 % (11.6-14.8); White Blood Cell Count 5.1 X10^3/uL (4.5-11.0)
[2021-01-21 11:04] LABS: BUN Creatinine Ratio 13.8 (6-22); Blood Urea Nitrogen 11 mg/dL (7-17); Calcium 9.7 mg/dL (8.4-10.2); Carbon Dioxide 28 mmol/L (22-32); Chloride 104 mmol/L (98-107); Cholesterol 152 mg/dL (140-199); Estimated Glomerular Filt Rate > 60.0 mL/min (>60); Glucose 115 mg/dL (80-110); HDL Cholesterol 69 mg/dL (40-60); HEMOLYSIS < 15 (0-50); LDL Cholesterol Calculated 69 mg/dL (<100); Potassium 4.3 mmol/L (3.4-5.1); Sodium 139 mmol/L (137-145); Triglycerides 69 mg/dL (35-150)
== END ==
PROVIDERS: PCP Family Medicine; Referring Provider Internal Medicine Cardiovascular Disease; Visit Provider Internal Medicine Cardiovascular Disease
DX: E78.2 Mixed hyperlipidemia (principal); I10 Essential (primary) hypertension
CPT/HCPCS: 36415; 80048; 80061; 85025

== ENCOUNTER → 2021-02-03 11:47 | Outpatient (CLI) | payer MEDICARE, OTHER, SELFPAY ==
[2020-08-22 14:37] VITALS: BMI 30.7
--- NOTE | 2021-02-03 11:48 | DI.RAD.S_ITS ---
PROCEDURE: XR LUMBAR SPINE 2-3V INDICATIONS: lumbar spine pain TECHNIQUE: 3 views of the lumbar spine were acquired. COMPARISON: [facility], , L-SPINE 2-3 VIEWS, 11/27/2012, 8:25. FINDINGS: Bones: No acute fracture is seen. Multilevel degenerative endplate sclerosis and spurring. Diffuse facet arthropathy. Moderate narrowing of the L4-L5 disc space. Mild narrowing of the remaining lumbar disc spaces. Straightening of the normal lordotic curvature. Soft tissues: Right upper quadrant surgical clips. IMPRESSION: Diffuse lumbar spondylosis most pronounced at L4-L5. Minimal if any progression since 11/27/12. Dictated by: Reid Hayden M.D. on 02/03/2021 at 13:43 Approved by: Reid Hayden M.D. on 02/03/2021 at 13:45
[2021-02-03 12:02] LABS: Bacteria Urine None Seen; RBC Urine None Seen (0-5/HPF); WBC Urine None Seen (0-5/HPF)
[2021-02-03 12:36] LABS: Appearance Urine UA CLEAR; Bilirubin Urine UA NEGATIVE (NEGATIVE); Color Urine UA YELLOW; Glucose Urine UA NEGATIVE (Negative); Ketones Urine UA NEGATIVE (NEGATIVE); Leukocyte Esterase Urine UA NEGATIVE (NEGATIVE); Nitrite Urine UA NEGATIVE (Negative); Occult Blood Urine UA NEGATIVE (Negative); Protein Urine UA NEGATIVE (Negative); Specific Gravity Urine UA <=1.005 (1.000-1.035); Urobilinogen Urine UA 0.2 E.U./dL (0.2)
[2021-02-03 12:37] LABS: pH Urine UA 6.5 (4.5-8.0)
[2021-02-03 12:59] LABS: Culture Indicated Urine Cult Not Indicated
== END ==
PROVIDERS: PCP Family Medicine; Referring Provider Family Medicine; Visit Provider Family Medicine
DX: M54.5 Low back pain (principal); R35.0 Frequency of micturition
CPT/HCPCS: 72100; 81001

== ENCOUNTER → 2021-08-26 09:41 | Outpatient (CLI) | payer MEDICARE, OTHER, SELFPAY ==
[2021-07-22 13:42] VITALS: BMI 30.7
[2021-08-26 10:59] LABS: Add Manual Diff / Slide Review NO; Basophils Absolute Auto 0 /uL (0-100); Basophils Percent Auto 0.8 % (0-2); Eosinophils Absolute Auto 100 /uL (0-450); Eosinophils Percent Auto 3.4 % (2-4); Hematocrit 35.4 % (36-46); Lymphocytes Absolute Auto 1000 /uL (1100-4500); Lymphocytes Percent Auto 26.5 % (25-40); Mean Corpuscular Hemoglobin 30.4 PG (26-34); Mean Corpuscular Volume 89.3 fL (80-100); Monocytes Absolute Auto 300 /uL (0-900); Monocytes Percent Auto 9.1 % (3-14); Neutrophils Absolute Auto 2200 /uL (1500-7000); Neutrophils Percent Auto 60.2 % (50-75); Platelet Count 194 X10^3/uL (150-400); Red Blood Cell Count 3.97 X10^6/uL (4.0-5.2); Red Cell Distribution Width 13.4 % (11.6-14.8); White Blood Cell Count 3.6 X10^3/uL (4.5-11.0)
[2021-08-26 11:09] LABS: Alanine Aminotransferase 13 IU/L (<35); Albumin 4.2 g/dL (3.5-5.0); Albumin Globulin Ratio 1.5 (1.0-2.8); Alkaline Phosphatase 34 U/L (38-126); Aspartate Aminotransferase 21 IU/L (14-36); BUN Creatinine Ratio 12.5 (6-22); Bilirubin Total 0.4 mg/dL (0.2-1.3); Blood Urea Nitrogen 11 mg/dL (7-17); Calcium 9.1 mg/dL (8.4-10.2); Carbon Dioxide 28 mmol/L (22-32); Chloride 104 mmol/L (98-107); Estimated Glomerular Filt Rate > 60.0 mL/min (>60); Globulin 2.8 g/dL (1.7-4.1); Glucose 113 mg/dL (80-110); HEMOLYSIS < 15 (0-50); Potassium 4.1 mmol/L (3.4-5.1); Sodium 139 mmol/L (137-145)
[2021-08-26 11:37] LABS: TSH w/ Reflex to FT4 0.48 uIU/mL (0.47-4.68)
== END ==
PROVIDERS: PCP Family Medicine; Referring Provider Family Medicine; Visit Provider Family Medicine
DX: E03.9 Hypothyroidism, unspecified (principal); I10 Essential (primary) hypertension; I48.91 Unspecified atrial fibrillation; E78.2 Mixed hyperlipidemia; R25.2 Cramp and spasm
CPT/HCPCS: 36415; 80053; 83735; 84443; 85025

== ENCOUNTER → 2021-11-08 13:35 | Outpatient (CLI) | payer MEDICARE, OTHER, SELFPAY ==
[2021-07-22 13:42] VITALS: BMI 30.7
--- NOTE | 2021-11-08 13:38 | DI.MRI.S_ITS ---
PROCEDURE: MR LUMBAR SPINE WO CON INDICATIONS: bilateral feet numbness and tingling TECHNIQUE: Noncontrast sagittal T1 spin echo and T2 fast echo, sagittal STIR, axial T1 and T2 fast spin echo through the lumbar spine. In cases with scoliosis, additional coronal T2 fast spin echo may be performed. COMPARISON: [facility], CR, XR LUMBAR SPINE 2-3V, 02/03/2021, 11:52. [facility], CT, CT ABDOMEN WO/W CON, 07/02/2018, 10:04. FINDINGS: Image quality: Diagnostic Alignment and Curvature: There is normal bony alignment. Bone Marrow: Marrow is of normal overall signal. No acute vertebral body compression fractures. Spinal Cord: Conus medullaris terminates at the L1 level. Visualized cord demonstrates normal signal and size. Paraspinous Soft Tissues: No paravertebral masses. T12-L1: No significant abnormality is seen. L1-L2: The disc height and disc signal are relatively well preserved. Mild to moderate disc bulge is seen. Mild to moderate facet hypertrophy is seen. There is [id number] right-sided and moderate left-sided neural foraminal narrowing. Mild central canal narrowing is seen. L2-L3: At least moderate disc bulge is seen, which is eccentric to the left. Mild to moderate facet hypertrophy is seen. There is mild right-sided and at least moderate left-sided neural foraminal narrowing. At least moderate central canal narrowing is seen, as on series 5, image 16. L3-L4: The disc height is well-preserved. Loss of disc signal is seen at this level. At least moderate disc bulge is seen. There is a superimposed central disc protrusion. Mild to moderate facet hypertrophy is seen. There is moderate right-sided and [id number] left-sided neural foraminal narrowing. At least moderate central canal narrowing is seen at this level, as on series 5, image 22. L4-L5: [id number] loss of disc height and disc signal can be seen. At least moderate disc bulge is seen, which is eccentric to the right. Moderate facet joint hypertrophy is seen. There is at least moderate left-sided and moderate to severe right-sided neural foraminal narrowing. There is a degree of compression seen upon the exiting right L5 nerve root. Moderate central canal narrowing is seen. L5-S1: The disc height and disc signal are relatively well preserved. Mild to moderate disc bulge is seen. Mild to moderate facet hypertrophy is seen at this level. There is moderate left-sided and at least moderate right-sided neural foraminal narrowing. There is a degree of compression seen upon the exiting right L5 nerve root. Moderate central canal narrowing is seen. IMPRESSION: Multiple levels of lumbar spine degenerative change are seen, which are overall worst at the L4-L5 level. Several sites of significant neural foraminal narrowing can be seen, with associated exiting nerve root compression. Dictated by: Paresh Tipton M.D. on 11/08/2021 at 17:16 Approved by: Paresh Tipton M.D. on 11/08/2021 at 17:21
[2021-11-08 15:00] LABS: Add Manual Diff / Slide Review NO; Basophils Absolute Auto 0 /uL (0-100); Basophils Percent Auto 0.8 % (0-2); Eosinophils Absolute Auto 100 /uL (0-450); Hematocrit 36.8 % (36-46); Hemoglobin 12.3 g/dL (12.0-16.0); Lymphocytes Absolute Auto 1300 /uL (1100-4500); Lymphocytes Percent Auto 31.3 % (25-40); Mean Corpuscular HGB Conc 33.5 % (30-36); Mean Corpuscular Hemoglobin 29.8 PG (26-34); Mean Corpuscular Volume 88.9 fL (80-100); Monocytes Absolute Auto 500 /uL (0-900); Monocytes Percent Auto 10.7 % (3-14); Neutrophils Absolute Auto 2400 /uL (1500-7000); Neutrophils Percent Auto 55.2 % (50-75); Platelet Count 223 X10^3/uL (150-400); Red Blood Cell Count 4.14 X10^6/uL (4.0-5.2); Red Cell Distribution Width 13.4 % (11.6-14.8); White Blood Cell Count 4.3 X10^3/uL (4.5-11.0)
== END ==
PROVIDERS: PCP Family Medicine; Referring Provider Family Medicine; Visit Provider Family Medicine
DX: M47.816 Spondylosis without myelopathy or radiculopathy, lumbar region (principal); M47.817 Spondylosis without myelopathy or radiculopathy, lumbosacral region; M48.061 Spinal stenosis, lumbar region without neurogenic claudication; M48.07 Spinal stenosis, lumbosacral region; M54.50 Low back pain, unspecified; M79.604 Pain in right leg; M79.605 Pain in left leg; R20.0 Anesthesia of skin; D72.819 Decreased white blood cell count, unspecified
CPT/HCPCS: 36415; 72148; 85025

== ENCOUNTER → 2022-02-17 08:45 | Outpatient (CLI) | payer MEDICARE, OTHER, SELFPAY ==
[2021-07-22 13:42] VITALS: BMI 30.7
[2022-02-17 10:38] LABS: Appearance Urine UA CLOUDY; Bilirubin Urine UA NEGATIVE (NEGATIVE); Color Urine UA YELLOW; Glucose Urine UA NEGATIVE (Negative); Ketones Urine UA NEGATIVE (NEGATIVE); Leukocyte Esterase Urine UA 2+ (NEGATIVE); Nitrite Urine UA NEGATIVE (Negative); Occult Blood Urine UA 2+ (Negative); Protein Urine UA 1+ (Negative); Specific Gravity Urine UA 1.025 (1.000-1.035); Urobilinogen Urine UA 0.2 E.U./dL (0.2)
[2022-02-17 10:53] LABS: Bacteria Urine Many (>30); Culture Indicated Urine Specimen Cultured; RBC Urine 5-10/HPF (0-5/HPF); Squamous Epithelial Cell Urine 0-1 /HPF (0-5/HPF); WBC Urine 30-100/HPF (0-5/HPF)
== END ==
PROVIDERS: PCP Family Medicine; Referring Provider Family Medicine; Visit Provider Family Medicine
DX: R30.0 Dysuria (principal); R39.15 Urgency of urination; R35.0 Frequency of micturition
CPT/HCPCS: 81001; 87077; 87086; 87186

== ENCOUNTER → 2022-07-07 09:48 | Outpatient (CLI) | payer MEDICARE, OTHER, SELFPAY ==
[2021-07-22 13:42] VITALS: BMI 30.7
--- NOTE | 2022-07-07 09:51 | DI.MG.S_ITS ---
BILATERAL DIGITAL SCREENING MAMMOGRAM 3D/2D WITH CAD: 07/07/2022 CLINICAL: Baseline by default. Comparison is made to exams dated: 02/04/2013 mammogram, 01/11/2012 mammogram, 09/20/2010 mammogram, and 08/23/2009 mammogram - [facility]. Both breasts are heterogeneously dense, which may obscure small masses (category c / 51-75% glandular tissue). Current study was also evaluated with a Computer Aided Detection (CAD) system. No significant masses, calcifications, or other findings are seen in either breast. There has been no significant interval change. IMPRESSION: NEGATIVE There is no mammographic evidence of malignancy. A 1 year screening mammogram is recommended. Based on the Tyrer Cuzick model (a risk assessment model) the patient's lifetime risk is 3.3% and her 10 year risk is 0.0%. According to the ACR, ACS, and NCCN guidelines, an annual breast MRI exam along with mammogram is recommended if the patient's lifetime risk is 20% or greater. This exam was interpreted at Station ID: [id number]. NOTE: For mammograms, a report in lay terms will be sent to the patient. Approximately 15% of breast malignancies will not be visualized mammographically. In the management of a palpable breast mass, a negative mammogram must not discourage biopsy of a clinically suspicious lesion. Electronically Signed By: Ramana harding/makenna:07/07/2022 10:42:41 letter sent: Normal Exam ACR BI-RADS Category 1: Negative [id number]
== END ==
PROVIDERS: PCP Family Medicine; Referring Provider Family Medicine; Visit Provider Family Medicine
DX: Z12.31 Encounter for screening mammogram for malignant neoplasm of breast (principal)
CPT/HCPCS: 77063; 77067

== ENCOUNTER → 2022-08-28 09:37 | Outpatient (CLI) | payer MEDICARE, OTHER, SELFPAY ==
[2021-07-22 13:42] VITALS: BMI 30.7
[2022-08-28 10:35] LABS: Creatinine Urine Random 219.1 mg/dL
[2022-08-28 10:41] LABS: Microalbumi Creatinin Ratio Ur 19.1 ug/mg CR (<30); Microalbumin Urine Random 4.2 mg/dL (0-1.6)
[2022-08-28 10:52] LABS: Add Manual Diff / Slide Review NO; Basophils Absolute Auto 0 /uL (0-100); Basophils Percent Auto 1.1 % (0-2); Eosinophils Absolute Auto 100 /uL (0-450); Eosinophils Percent Auto 2.8 % (2-4); Hematocrit 38.1 % (36-46); Lymphocytes Absolute Auto 1200 /uL (1100-4500); Lymphocytes Percent Auto 27.9 % (25-40); Mean Corpuscular HGB Conc 34.2 % (30-36); Mean Corpuscular Hemoglobin 30.4 PG (26-34); Mean Corpuscular Volume 89.1 fL (80-100); Monocytes Absolute Auto 400 /uL (0-900); Monocytes Percent Auto 10.4 % (3-14); Neutrophils Absolute Auto 2400 /uL (1500-7000); Neutrophils Percent Auto 57.8 % (50-75); Platelet Count 224 X10^3/uL (150-400); Red Blood Cell Count 4.28 X10^6/uL (4.0-5.2); Red Cell Distribution Width 13.3 % (11.6-14.8); White Blood Cell Count 4.2 X10^3/uL (4.5-11.0)
[2022-08-28 11:08] LABS: Alanine Aminotransferase 16 IU/L (<35); Albumin 4.4 g/dL (3.5-5.0); Albumin Globulin Ratio 1.3 (1.0-2.8); Alkaline Phosphatase 45 U/L (38-126); Aspartate Aminotransferase 22 IU/L (14-36); BUN Creatinine Ratio 13.7 (6-22); Bilirubin Total 0.6 mg/dL (0.2-1.3); Blood Urea Nitrogen 14 mg/dL (7-17); Calcium 9.2 mg/dL (8.4-10.2); Carbon Dioxide 27 mmol/L (22-32); Chloride 103 mmol/L (98-107); Cholesterol 189 mg/dL (140-199); Estimated Glomerular Filt Rate 56 mL/min (>60); Globulin 3.3 g/dL (1.7-4.1); Glucose 115 mg/dL (80-110); HDL Cholesterol 78 mg/dL (40-60); HEMOLYSIS < 15 (0-50); LDL Cholesterol Calculated 96 mg/dL (<100); Potassium 3.9 mmol/L (3.4-5.1); Sodium 139 mmol/L (137-145); Total Protein 7.7 g/dL (6.3-8.2); Triglycerides 76 mg/dL (35-150)
[2022-08-28 11:37] LABS: TSH w/ Reflex to FT4 1.48 uIU/mL (0.47-4.68)
== END ==
PROVIDERS: PCP Family Medicine; Referring Provider Family Medicine; Visit Provider Family Medicine
DX: E78.2 Mixed hyperlipidemia (principal); I10 Essential (primary) hypertension; I48.91 Unspecified atrial fibrillation
CPT/HCPCS: 36415; 80053; 80061; 82043; 82570; 84443; 85025

== ENCOUNTER → 2022-11-03 11:07 | Outpatient (CLI) | payer MEDICARE, OTHER, SELFPAY ==
[2021-07-22 13:42] VITALS: BMI 30.7
[2022-11-03 12:28] LABS: Albumin Globulin Ratio 1.4 (1.0-2.8); Blood Urea Nitrogen 12 mg/dL (7-17); Carbon Dioxide 29 mmol/L (22-32); Estimated Glomerular Filt Rate > 60 mL/min (>60); Globulin 2.8 g/dL (1.7-4.1); Total Protein 6.8 g/dL (6.3-8.2)
[2022-11-03 12:50] LABS: Alanine Aminotransferase 16 IU/L (<35); Alkaline Phosphatase 42 U/L (38-126); Aspartate Aminotransferase 24 IU/L (14-36); Bilirubin Total 0.6 mg/dL (0.2-1.3); Calcium 9.2 mg/dL (8.4-10.2); Chloride 103 mmol/L (98-107); Glucose 100 mg/dL (80-110); HEMOLYSIS < 15 (0-50); Potassium 4.4 mmol/L (3.4-5.1); Sodium 139 mmol/L (137-145)
== END ==
PROVIDERS: PCP Family Medicine; Referring Provider Family Medicine; Visit Provider Family Medicine
DX: E78.2 Mixed hyperlipidemia (principal); I10 Essential (primary) hypertension
CPT/HCPCS: 36415; 80053

== ENCOUNTER → 2023-04-23 13:58 | Outpatient (CLI) | payer MEDICARE, OTHER, SELFPAY ==
[2021-07-22 13:42] VITALS: BMI 30.7
[2023-04-23 14:28] LABS: Appearance Urine UA CLEAR; Bilirubin Urine UA NEGATIVE (NEGATIVE); Color Urine UA YELLOW; Glucose Urine UA NEGATIVE (Negative); Ketones Urine UA NEGATIVE (NEGATIVE); Leukocyte Esterase Urine UA 2+ (NEGATIVE); Nitrite Urine UA POSITIVE (Negative); Occult Blood Urine UA 1+ (Negative); Protein Urine UA 1+ (Negative)
[2023-04-23 14:31] LABS: Bacteria Urine Occasional (0-1); Culture Indicated Urine Specimen Cultured; RBC Urine None Seen (0-5/HPF); Squamous Epithelial Cell Urine 5-10 /HPF (0-5/HPF); WBC Urine 5-10/HPF (0-5/HPF)
== END ==
PROVIDERS: PCP Family Medicine; Referring Provider Family Medicine; Visit Provider Family Medicine
DX: R30.0 Dysuria (principal)
CPT/HCPCS: 81001; 87077; 87086; 87186

== ENCOUNTER → 2023-07-31 16:22 | Outpatient (CLI) | payer MEDICARE, OTHER, SELFPAY ==
[2021-07-22 13:42] VITALS: BMI 30.7
--- NOTE | 2023-07-31 16:24 | DI.RAD.S_ITS ---
PROCEDURE: XR KNEE RT 3V INDICATIONS: r knee swelling medially for 1 mo, pain yesterday lateral TECHNIQUE: 3 views of the knee were acquired. COMPARISON: [facility], CR, XR KNEE ARTHRITIC SERIES RT, 07/20/2017, 8:59. FINDINGS: Bones: No fractures or dislocations. No suspicious bony lesions. Moderate medial and patellofemoral compartment osteoarthritis with osseous hypertrophy and joint space narrowing. Mild lateral compartment osteoarthritis with osseous hypertrophy. Soft tissues: No joint effusion. No suspicious soft tissue calcifications. IMPRESSION: Right knee tricompartmental osteoarthritis. Dictated by: Julianne Lopez MD, PhD on 07/31/2023 at 17:00 Approved by: Julianne Lopez MD, PhD on 07/31/2023 at 17:01
== END ==
PROVIDERS: PCP Family Medicine; Referring Provider Physician Assistant; Visit Provider Physician Assistant
DX: M25.461 Effusion, right knee (principal); M17.11 Unilateral primary osteoarthritis, right knee
CPT/HCPCS: 73562; 85379

== ENCOUNTER → 2023-07-31 16:43 | Outpatient (CLI) | payer MEDICARE, OTHER, SELFPAY ==
[2021-07-22 13:42] VITALS: BMI 30.7
[2023-07-31 17:33] LABS: D Dimer < 215 ng/ml (<500)
== END ==
PROVIDERS: PCP Family Medicine; Referring Provider Physician Assistant; Visit Provider Physician Assistant
DX: M25.461 Effusion, right knee (principal)
CPT/HCPCS: 85379

== ENCOUNTER → 2023-09-21 08:59 | Outpatient (CLI) | payer MEDICARE, OTHER, SELFPAY ==
[2021-07-22 13:42] VITALS: BMI 30.7
[2023-09-21 10:51] LABS: Add Manual Diff / Slide Review NO; Basophils Absolute Auto 100 /uL (0-100); Basophils Percent Auto 1.3 % (0-2); Eosinophils Absolute Auto 100 /uL (0-450); Hematocrit 36.9 % (36-46); Hemoglobin 12.8 g/dL (12.0-16.0); Lymphocytes Absolute Auto 1000 /uL (1100-4500); Lymphocytes Percent Auto 20.1 % (25-40); Mean Corpuscular HGB Conc 34.6 % (30-36); Mean Corpuscular Volume 89.7 fL (80-100); Monocytes Absolute Auto 500 /uL (0-900); Monocytes Percent Auto 9.7 % (3-14); Neutrophils Absolute Auto 3400 /uL (1500-7000); Neutrophils Percent Auto 66.9 % (50-75); Platelet Count 263 X10^3/uL (150-400); Red Blood Cell Count 4.11 X10^6/uL (4.0-5.2); Red Cell Distribution Width 13.5 % (11.6-14.8); White Blood Cell Count 5.1 X10^3/uL (4.5-11.0)
[2023-09-21 11:09] LABS: Alanine Aminotransferase 15 IU/L (<35); Albumin 4.3 g/dL (3.5-5.0); Albumin Globulin Ratio 1.4 (1.0-2.8); Alkaline Phosphatase 50 U/L (38-126); BUN Creatinine Ratio 14.3 (6-22); Bilirubin Total 0.7 mg/dL (0.2-1.3); Blood Urea Nitrogen 14 mg/dL (7-17); Calcium 9.4 mg/dL (8.4-10.2); Carbon Dioxide 26 mmol/L (22-32); Chloride 102 mmol/L (98-107); Cholesterol 187 mg/dL (140-199); Estimated Glomerular Filt Rate 58 mL/min (>60); Globulin 3.1 g/dL (1.7-4.1); Glucose 122 mg/dL (80-110); HDL Cholesterol 95 mg/dL (40-60); HEMOLYSIS < 15 (0-50); LDL Cholesterol Calculated 78 mg/dL (<100); Potassium 4.4 mmol/L (3.4-5.1); Sodium 137 mmol/L (137-145); Total Protein 7.4 g/dL (6.3-8.2); Triglycerides 70 mg/dL (35-150)
[2023-09-21 12:19] LABS: Free T4, Direct Thyroxine 1.33 ng/dL (0.78-2.19)
[2023-09-21 15:17] LABS: Aspartate Aminotransferase 22 IU/L (14-36)
[2023-09-21 17:18] LABS: Creatinine Urine Random 199.5 mg/dL
[2023-09-21 17:19] LABS: Microalbumin Urine Random 2.2 mg/dL (0-1.6)
[2023-09-25 04:19] LABS: Lipoprotein (a) 41.5 nmol/L (<75.0)
[2023-10-10 13:23] LABS: Apolipoprotein B 69
== END ==
LOC: LAB 09:00
PROVIDERS: PCP Family Medicine; Referring Provider Family Medicine; Visit Provider Family Medicine
DX: E03.9 Hypothyroidism, unspecified (principal); I10 Essential (primary) hypertension; D72.819 Decreased white blood cell count, unspecified; D69.6 Thrombocytopenia, unspecified; E78.2 Mixed hyperlipidemia; Z79.01 Long term (current) use of anticoagulants
CPT/HCPCS: 36415; 80053; 80061; 82043; 82172; 82570; 83695; 84439; 84443; 85025

== ENCOUNTER → 2024-04-15 09:20 | Outpatient (CLI) | payer MEDICARE, OTHER, SELFPAY ==
[2021-07-22 13:42] VITALS: BMI 30.7
[2024-04-15 11:00] LABS: Hemoglobin A1C% w Est Avg Glu 5.5 % (4.0-6.0)
[2024-04-15 11:36] LABS: TSH w/ Reflex to FT4 1.82 uIU/mL (0.47-4.68)
== END ==
LOC: LAB 09:21
PROVIDERS: PCP Family Medicine; Referring Provider Family Medicine; Visit Provider Family Medicine
DX: R73.09 Other abnormal glucose (principal); E03.9 Hypothyroidism, unspecified
CPT/HCPCS: 36415; 83036; 84443

== ENCOUNTER 2024-07-03 18:57 | Emergency (ER) | payer MEDICARE, OTHER, SELFPAY ==
[2021-07-22 13:42] VITALS: BMI 30.7
[2024-07-03] VITALS (10 sets, daily range): BP systolic 163–184; BP diastolic 76–84; PULSE 79–96; RESP 17–18; TEMP 36.8; O2SAT 96–99; BMI 28.2
--- NOTE | 2024-07-03 19:24 | EKG_ITS ---
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
[2024-07-03 19:47] LABS: Add Manual Diff / Slide Review NO; Basophils Absolute Auto 0 /uL (0-100); Basophils Percent Auto 1.2 % (0-2); Eosinophils Absolute Auto 100 /uL (0-450); Eosinophils Percent Auto 3.5 % (2-4); Hematocrit 36.9 % (36-46); Hemoglobin 12.6 g/dL (12.0-16.0); Lymphocytes Absolute Auto 1100 /uL (1100-4500); Lymphocytes Percent Auto 29.6 % (25-40); Mean Corpuscular HGB Conc 34.1 % (30-36); Mean Corpuscular Hemoglobin 30.7 PG (26-34); Mean Corpuscular Volume 89.9 fL (80-100); Monocytes Absolute Auto 600 /uL (0-900); Neutrophils Absolute Auto 1800 /uL (1500-7000); Neutrophils Percent Auto 49.7 % (50-75); Platelet Count 261 X10^3/uL (150-400); Red Cell Distribution Width 13.2 % (11.6-14.8); White Blood Cell Count 3.6 X10^3/uL (4.5-11.0)
[2024-07-03 19:58] LABS: Alanine Aminotransferase 14 IU/L (<35); Albumin 4.2 g/dL (3.5-5.0); Albumin Globulin Ratio 1.3 (1.0-2.8); Alkaline Phosphatase 57 U/L (38-126); Aspartate Aminotransferase 21 IU/L (14-36); Bilirubin Total 0.4 mg/dL (0.2-1.3); Blood Urea Nitrogen 10 mg/dL (7-17); Carbon Dioxide 25 mmol/L (22-32); Chloride 102 mmol/L (98-107); Estimated Glomerular Filt Rate > 60 mL/min (>60); Globulin 3.2 g/dL (1.7-4.1); Glucose 137 mg/dL (80-110); HEMOLYSIS < 15 (0-50); Lipase 123 U/L (23-300); Potassium 3.9 mmol/L (3.4-5.1); Sodium 136 mmol/L (137-145); Total Protein 7.4 g/dL (6.3-8.2)
--- NOTE | 2024-07-03 21:36 | PC.NURSE ---
iv placed by another nurse
--- NOTE | 2024-07-03 21:41 | DI.RAD.S_ITS ---
PROCEDURE: XR ACUTE ABDOMEN SERIES INDICATIONS: abd discomfort and transient bowel tones hx of hiatal hernia TECHNIQUE: One view chest and two views of the abdomen were acquired. COMPARISON: [facility], CR, XR CHEST 1V, 10/22/2020, 8:10. FINDINGS: Surgical changes and devices: Right upper quadrant surgical clips. Additional surgical clip overlying the right iliac crest. Chest: Lungs are clear. Heart size is normal. No pleural effusions. No pneumoperitoneum. Abdomen: Bowel gas pattern is normal. No suspicious calcifications. Visualized solid organ contours appear normal. Bones: No suspicious bony lesions. 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 IMPRESSION: No acute abnormality. Dictated by: Jamie Pacheco M.D. on 07/03/2024 at 22:30 Approved by: Jamie Pacheco M.D. on 07/03/2024 at 22:34
[2024-07-03] MEDS: FLECAINIDE 100 MG TABLET PO (22:05)
[2024-07-03] MEDS: DABIGATRAN 75 MG CAPSULE 150 MG PO (22:05)
--- NOTE | 2024-07-03 23:10 | ED_ITS ---
HPI - Abdominal Pain General Chief Complaint: Abdominal Pain Stated Complaint: abd and chest pain Time Seen by Provider: 07/03/24 23:06 Source: patient Mode of arrival: Family Vehicle Limitations: no limitations History of Present Illness HPI narrative: 78-year-old female history of atrial fibrillation on dabigatran, diltiazem, flecainide, dyslipidemia, hypothyroidism and hypertension who presents with complaint of sensation of upper abdominal fullness that is worse when she lays down. States it has been going on for 4-5 days. This evening it was worse after dinner it was what prompted her to come. She states it feels like her belly is pushing up into her chest. No pain, she states no fevers or chills. No nausea or vomiting. No lightheadedness or passing out. Denies any shortness of breath. States when she is upright or walking around it does not bother her. She was okay when she seated but lying back causes her to have this sensation. States she has had normal bowel movements. No black or bloody stools. No dysuria urgency or frequency. States she has chronic back pain but that has not changed. States it does not radiate to anywhere else. Patient states had sort of similar symptoms years ago, resolved on its own but did have an upper endoscopy which did not find anything at that time. Patient states she has had prior hysterectomy, cholecystectomy, appendectomy, no cardiac stents or interventions reported. States allergic to sulfa and anesthesia patient gets very nauseated. No tobacco in the past 60 years, no regular alcohol, no recreational drugs. Dr. Lopez is her primary care physician. Related Data Home Medications Medication Instructions Recorded Confirmed flecainide 100 mg tablet 100 mg PO Q8H PRN a fib 11/13/22 09/27/23 atorvastatin 80 mg tablet 10 mg PO DAILY 09/27/23 09/27/23 diltiazem HCl 120 mg capsule,24 360 mg PO QAM 09/27/23 09/27/23 hr,extended release losartan 50 mg tablet 50 mg PO DAILY 09/27/23 09/27/23 Previous Rx's Medication Instructions Recorded levothyroxine 100 mcg tablet 100 mcg PO DAILY #90 tabs 06/03/24 dabigatran etexilate 150 mg capsule 150 mg PO BID #180 caps 06/25/24 Allergies Allergy/AdvReac Type Severity Reaction Status Date / Time Sulfa (Sulfonamide AdvReac Severe VOMITING Verified 09/27/23 14:14 Antibiotics) [SULFA (SULFONAMIDE ANTIBIOTICS)] ANESTHESIA AdvReac Severe Uncoded 09/27/23 14:14 nausea Review of Systems Review of Systems ROS Unobtainable: All systems reviewed & are unremarkable except as noted in HPI and below Patient History Medical History Hyperglycemia Bilateral leg weakness Hypothyroidism Anticoagulation adequate with anticoagulant therapy Atrial fibrillation with RVR Vision disorder Mumps Measles Chicken pox Fibroids (~1979) Sepsis Influenza Surgical History Anesthesia History of knee surgery History of cholecystectomy History of hysterectomy Status post total abdominal hysterectomy and bilateral salpingo-oophorectomy (KARISHMA-BSO) History of cholecystectomy Status post cholecystectomy Family History Father Heart disease Social History marital status: household members: spouse occupational status: previously employed Smoking Status: Former smoker alcohol intake: current substance use type: does not use Smoking Status: Former smoker tobacco type: cigarettes alcohol intake frequency: 0-2 drinks per day Substance Use Type: does not use Exam Narrative Exam Narrative: GENERAL: Alert and oriented x three, well-appearing elderly female in mild distress. Patient reclined on the bed at about to 30?. HEENT: Head normocephalic, atraumatic, EOMI, pupils reactive, face symmetric, moist mucous membranes NECK: Supple, full range of motion CARDIOVASCULAR: Regular rate and rhythm without murmurs, rubs or gallops. No JVD. No edema bilateral lower extremities. RESPIRATORY: Breath sounds equal bilaterally, no wheezes rales or rhonchi. No tachypnea or accessory muscle use. ABDOMEN: Soft, nontender. Nondistended. Normoactive bowel sounds all 4 quadrants. No guarding or rebound, rigidity, no mass : No CVA tenderness EXTREMITIES: Normal range of motion, no clubbing or edema. Neurovascularly intact NEUROLOGICAL: Cranial nerves II through XII grossly intact. Moving all extremities SKIN: Warm, dry, no petechiae, no rashes or lesions. Initial Vital Signs Initial Vital Signs: Vital Signs Temperature 98.3 F 07/03/24 19:21 Pulse Rate 93 H 07/03/24 19:21 Respiratory Rate 17 07/03/24 19:21 Blood Pressure 179/84 H 07/03/24 19:21 Pulse Oximetry 98 07/03/24 19:21 Oxygen Delivery Method Room Air 07/03/24 19:21 Course Orders Ordered: ED Orders 07/03/24 21:41 XR acute abdomen series Stat EKG-12 Lead Stat 07/03/24 23:38 CT abdomen pelvis w con Stat Discontinued Medications Dabigatran (Dabigatran 75 Mg Capsule) 150 mg PO NOW ONE Stop: 07/03/24 21:44 Last Admin: 07/03/24 22:05 Dose: 150 mg Documented By: ROS Flecainide Acetate (Flecainide 100 Mg Tablet) 100 mg PO NOW ONE Stop: 07/03/24 21:47 Last Admin: 07/03/24 22:05 Dose: 100 mg Documented By: ROS Ondansetron HCl (Ondansetron 4 Mg/2 Ml Inj) 4 mg IV NOW PRN PRN Reason: Nausea And Vomiting Ondansetron HCl (Ondansetron 4 Mg Odt) 4 mg PO NOW PRN PRN Reason: Nausea And Vomiting Vital Signs Vital signs: Vital Signs - 8 hr 07/03/24 21:30 07/03/24 21:30 07/03/24 22:01 Pulse Rate 81 90 Respiratory Rate 18 Blood Pressure 179/84 H Pulse Oximetry 98 99 07/03/24 22:04 07/03/24 22:04 07/03/24 22:30 Pulse Rate 84 Respiratory Rate Blood Pressure 184/77 H 170/78 H Pulse Oximetry 98 07/03/24 22:30 07/03/24 23:00 07/03/24 23:30 Pulse Rate 79 81 84 Respiratory Rate Blood Pressure Pulse Oximetry 98 97 98 07/03/24 23:40 07/03/24 23:40 07/04/24 00:06 Pulse Rate 95 H 95 H Respiratory Rate Blood Pressure 163/76 H Pulse Oximetry 97 97 07/04/24 00:11 07/04/24 00:11 07/04/24 00:43 Pulse Rate 86 81 Respiratory Rate Blood Pressure 174/77 H Pulse Oximetry 98 98 07/04/24 00:43 07/04/24 01:00 07/04/24 01:00 Pulse Rate 78 Respiratory Rate 18 Blood Pressure 166/77 H 163/74 H Pulse Oximetry 99 07/04/24 01:30 07/04/24 01:30 Pulse Rate 83 Respiratory Rate Blood Pressure 175/82 H Pulse Oximetry 98 MDM - Abdominal Pain Lab Data 07/03/24 19:39 07/03/24 19:39 Labs: Lab Results 07/03/24 Range/Units 19:39 WBC 3.6 L (4.5-11.0) X10^3/uL RBC 4.10 (4.0-5.2) X10^6/uL Hgb 12.6 (12.0-16.0) g/dL Hct 36.9 (36-46) % MCV 89.9 (80-100) fL MCH 30.7 (26-34) PG MCHC 34.1 (30-36) % RDW 13.2 (11.6-14.8) % Plt Count 261 (150-400) X10^3/uL Neut % (Auto) 49.7 L (50-75) % Lymph % (Auto) 29.6 (25-40) % [place] % (Auto) 16.0 H (3-14) % Eos % (Auto) 3.5 (2-4) % Baso % (Auto) 1.2 (0-2) % Neut # (Auto) 1800 (4910-8929) /uL Lymph # (Auto) 1100 (8928-3909) /uL [place] # (Auto) 600 (0-900) /uL Eos # (Auto) 100 (0-450) /uL Baso # (Auto) 0 (0-100) /uL Sodium 136 L (137-145) mmol/L Potassium 3.9 (3.4-5.1) mmol/L Chloride 102 (98-107) mmol/L Carbon Dioxide 25 (22-32) mmol/L BUN 10 (7-17) mg/dL Creatinine 0.91 (0.52-1.04) mg/dL Estimated GFR > 60 (>60) mL/min BUN/Creatinine Ratio 11.0 (6-22) Glucose 137 H (80-110) mg/dL Calcium 9.0 (8.4-10.2) mg/dL Total Bilirubin 0.4 (0.2-1.3) mg/dL AST 21 (14-36) IU/L ALT 14 (<35) IU/L Alkaline Phosphatase 57 (38-126) U/L Total Creatine Kinase 35 (30-135) U/L Troponin I < 0.012 (0.01-0.034) ng/mL Total Protein 7.4 (6.3-8.2) g/dL Albumin 4.2 (3.5-5.0) g/dL Globulin 3.2 (1.7-4.1) g/dL Albumin/Globulin Ratio 1.3 (1.0-2.8) Lipase 123 (23-300) U/L Point of care testing: Urine Dip Bedside Urine Glucose Negative Bedside Urine Bilirubin - Negative Bedside Urine Ketone - Negative Urine Specific [place] 1.010 Bedside Urine Occult Blood - Negative Bedside Urine pH 6.0 Bedside Urine Protein - Negative Bedside Urine Urobilinogen - Negative Bedside Urine Nitrite - Negative Bedside Urine Leukocytes - Negative Esterase Imaging Data acute abd series: Radiologist's Impression: [address] [address] XRay Report Signed Patient: Flor Nunez MR#: [id number] : 1945 Acct:[id number] Age/Sex: 78 / F Date of Service: 07/03/24 Loc: ED Accession Number: [id number] Procedure: XR acute abdomen series Ordering Provider: Rere Hagen D.O. PROCEDURE: XR ACUTE ABDOMEN SERIES INDICATIONS: abd discomfort and transient bowel tones hx of hiatal hernia TECHNIQUE: One view chest and two views of the abdomen were acquired. COMPARISON: [facility], CR, XR CHEST 1V, 10/22/2020, 8:10. FINDINGS: Surgical changes and devices: Right upper quadrant surgical clips. Additional surgical clip overlying the right iliac crest. Chest: Lungs are clear. Heart size is normal. No pleural effusions. No pneumoperitoneum. Abdomen: Bowel gas pattern is normal. No suspicious calcifications. Visualized solid organ contours appear normal. Bones: No suspicious bony lesions. 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 IMPRESSION: No acute abnormality. Dictated by: Jamie Pacheco M.D. on 07/03/2024 at 22:30 Approved by: Jamie Pacheco M.D. on 07/03/2024 at 22:34 CT scan - abdomen/pelvis: Radiologist's Impression: [address] [address] [address] Scan Report Signed Patient: Flor Nunez MR#: [id number] : 1945 Acct:[id number] Age/Sex: 78 / F Date of Service: 07/03/24 Loc: ED Accession Number: [id number] Procedure: CT abdomen pelvis w con Ordering Provider: Rere Hagen D.O. PROCEDURE: CT ABDOMEN PELVIS W CON INDICATIONS: upper abd fullness, worse when laying flat TECHNIQUE: After the administration of intravenous contrast, axial sections acquired from the lung bases to the pubic symphysis. Coronal and sagittal reformats were performed. For radiation dose reduction, the following was used: automated exposure control, adjustment of mA and/or kV according to patient size. COMPARISON: [facility], CR, XR ACUTE ABDOMEN SERIES, 07/03/2024, 21:47. FINDINGS: Image quality: Diagnostic. Peritoneum: No pneumoperitoneum or ascites. Bones: No acute osseous abnormality. Lower Chest: No acute abnormality. Liver: Normal in size and contour. Gallbladder: No stones or pericholecystic fluid. Biliary tree: Mild biliary ductal dilatation, expected status post cholecystectomy. Pancreas: Within normal limits. Spleen: Normal in size and contour. Kidneys: No hydronephrosis or obstructive urolithiasis. Adrenals: No adrenal nodularity. Bladder: Normal in size and wall thickness. : Atrophic or surgically absent uterus. Stomach: Normal in size and contour. Small hiatal hernia. Bowel: Normal in diameter without any bowel obstruction. Nonvisualization of the appendix without secondary signs of acute appendicitis. Lymph Nodes: No retroperitoneal, mesenteric, or inguinal lymphadenopathy. Vascular: No abdominal aortic aneurysm. The visualized arterial vasculature is patent. Mild aortoiliac atherosclerosis. Soft Tissues: No acute abnormality. IMPRESSION: Small hiatal hernia. Otherwise, no acute CT abnormality of the abdomen/pelvis. Dictated by: Jamie Pacheco M.D. on 07/04/2024 at 1:38 Approved by: Jamie Pacheco M.D. on 07/04/2024 at 1:43 ECG Data Attestation: I personally reviewed and interpreted this ECG as follows: Interpretation: Sinus rhythm rate 80 MD 176 QRS of 104 QTC of 480, no acute ST elevation, nonspecific change. MDM Narrative Medical decision making narrative: Labs show white count of 3.6, hemoglobin of 12.6 platelets of 261. Sodium is 136 potassium 3.9 chloride 102 CO2 is 25 BUN 10 creatinine 0.91, glucose of 137 LFTs are negative lipase is 123. CK and troponin is negative. Chest abdomen pelvis x-ray shows no acute change EKG shows sinus rhythm, nonspecific change. CT abdomen pelvis shows a small hiatal hernia. Point of care urine is negative Patient has not had her flecainide or her dabigatran this evening so was given her home doses. Does show small hiatal this could be consistent with patient's symptoms. Discussed with patient and family at bedside recommend follow up with General surgery. Return precautions. Discharge Plan Departure Patient Disposition: Home Clinical Impression: Hiatal hernia Instructions: DI for Hiatal Hernia Activity Restrictions/Additional Instructions: Follow up with General surgery for evaluation your imaging does show a small halo hernia this is when your stomach bulges through the opening of your diaphragm and could cause some of your symptoms today. Contact is included below. Please return if you have new or worsening abdominal back flank pain, lightheadedness or passing out, persistent vomiting, new swelling of extremities or other new or concerning changes. Prescriptions: No Action levothyroxine 100 mcg tablet 100 mcg PO DAILY Qty: 90 0RF dabigatran etexilate 150 mg capsule 150 mg PO BID Qty: 180 1RF diltiazem HCl 120 mg capsule,extended release 24 hr 360 mg PO QAM losartan 50 mg tablet 50 mg PO DAILY atorvastatin 80 mg tablet 10 mg PO DAILY flecainide 100 mg tablet 100 mg PO Q8H PRN (Reason: a fib) Referrals: Lula Syed MD [Physician] - Manjinder Lopez MD [Primary Care Provider] - Stand Alone Forms: Patient Portal/API
--- NOTE | 2024-07-03 23:38 | DI.CT.S_ITS ---
PROCEDURE: CT ABDOMEN PELVIS W CON INDICATIONS: upper abd fullness, worse when laying flat TECHNIQUE: After the administration of intravenous contrast, axial sections acquired from the lung bases to the pubic symphysis. Coronal and sagittal reformats were performed. For radiation dose reduction, the following was used: automated exposure control, adjustment of mA and/or kV according to patient size. COMPARISON: [facility], CR, XR ACUTE ABDOMEN SERIES, 07/03/2024, 21:47. FINDINGS: Image quality: Diagnostic. Peritoneum: No pneumoperitoneum or ascites. Bones: No acute osseous abnormality. Lower Chest: No acute abnormality. Liver: Normal in size and contour. Gallbladder: No stones or pericholecystic fluid. Biliary tree: Mild biliary ductal dilatation, expected status post cholecystectomy. Pancreas: Within normal limits. Spleen: Normal in size and contour. Kidneys: No hydronephrosis or obstructive urolithiasis. Adrenals: No adrenal nodularity. Bladder: Normal in size and wall thickness. : Atrophic or surgically absent uterus. Stomach: Normal in size and contour. Small hiatal hernia. Bowel: Normal in diameter without any bowel obstruction. Nonvisualization of the appendix without secondary signs of acute appendicitis. Lymph Nodes: No retroperitoneal, mesenteric, or inguinal lymphadenopathy. Vascular: No abdominal aortic aneurysm. The visualized arterial vasculature is patent. Mild aortoiliac atherosclerosis. Soft Tissues: No acute abnormality. IMPRESSION: Small hiatal hernia. Otherwise, no acute CT abnormality of the abdomen/pelvis. Dictated by: Jamie Pacheco M.D. on 07/04/2024 at 1:38 Approved by: Jamie Pacheco M.D. on 07/04/2024 at 1:43
[2024-07-03 23:49] LABS: Creatine Kinase 35 U/L (30-135)
[2024-07-04 00:02] LABS: Troponin I < 0.012 ng/mL (0.01-0.034)
[2024-07-04 00:06] VITALS: PULSE 95; O2SAT 97
[2024-07-04 00:11] VITALS: BP 174/77; PULSE 86; O2SAT 98
[2024-07-04 00:43] VITALS: BP 166/77; PULSE 81; O2SAT 98
[2024-07-04 01:00] VITALS: BP 163/74; PULSE 78; RESP 18; O2SAT 99
[2024-07-04 01:30] VITALS: BP 175/82; PULSE 83; O2SAT 98
== END 2024-07-04 02:03 | disposition home or self-care (01) ==
PROVIDERS: Emergency Provider Emergency Medicine; PCP Family Medicine
DX: K44.9 Diaphragmatic hernia without obstruction or gangrene (principal); R07.9 Chest pain, unspecified; I10 Essential (primary) hypertension
CPT/HCPCS: 74022; 74177; 80053; 81003; 82550; 83690; 84484; 85025; 93005; 99283; 99284; Q9967

== ENCOUNTER → 2024-07-22 09:33 | Outpatient (CLI) | payer MEDICARE, OTHER, SELFPAY ==
[2021-07-22 13:42] VITALS: BMI 30.7
[2024-07-22 10:14] LABS: Add Manual Diff / Slide Review NO; Basophils Absolute Auto 100 /uL (0-100); Basophils Percent Auto 1.1 % (0-2); Eosinophils Absolute Auto 100 /uL (0-450); Eosinophils Percent Auto 2.1 % (2-4); Hematocrit 37.2 % (36-46); Hemoglobin 12.6 g/dL (12.0-16.0); Lymphocytes Absolute Auto 1000 /uL (1100-4500); Lymphocytes Percent Auto 17.8 % (25-40); Mean Corpuscular HGB Conc 33.8 % (30-36); Mean Corpuscular Hemoglobin 30.7 PG (26-34); Mean Corpuscular Volume 90.9 fL (80-100); Monocytes Absolute Auto 500 /uL (0-900); Monocytes Percent Auto 8.4 % (3-14); Neutrophils Absolute Auto 4000 /uL (1500-7000); Neutrophils Percent Auto 70.6 % (50-75); Platelet Count 275 X10^3/uL (150-400); Red Blood Cell Count 4.09 X10^6/uL (4.0-5.2); Red Cell Distribution Width 13.5 % (11.6-14.8); White Blood Cell Count 5.7 X10^3/uL (4.5-11.0)
[2024-07-22 10:34] LABS: Alanine Aminotransferase 13 IU/L (<35); Albumin Globulin Ratio 1.3 (1.0-2.8); Alkaline Phosphatase 53 U/L (38-126); Aspartate Aminotransferase 16 IU/L (14-36); BUN Creatinine Ratio 11.4 (6-22); Bilirubin Total 0.5 mg/dL (0.2-1.3); Blood Urea Nitrogen 10 mg/dL (7-17); Calcium 9.1 mg/dL (8.4-10.2); Carbon Dioxide 27 mmol/L (22-32); Chloride 103 mmol/L (98-107); Estimated Glomerular Filt Rate > 60 mL/min (>60); Globulin 3.2 g/dL (1.7-4.1); Glucose 147 mg/dL (80-110); HEMOLYSIS < 15 (0-50); Lipase 109 U/L (23-300); Potassium 3.5 mmol/L (3.4-5.1); Sodium 135 mmol/L (137-145); Total Protein 7.2 g/dL (6.3-8.2)
[2024-07-22 18:00] LABS: Appearance Urine UA SL CLOUDY; Bilirubin Urine UA NEGATIVE (NEGATIVE); Color Urine UA YELLOW; Glucose Urine UA NEGATIVE (Negative); Ketones Urine UA NEGATIVE (NEGATIVE); Leukocyte Esterase Urine UA 3+ (NEGATIVE); Nitrite Urine UA POSITIVE (Negative); Occult Blood Urine UA NEGATIVE (Negative); Protein Urine UA NEGATIVE (Negative); Urobilinogen Urine UA 0.2 E.U./dL (0.2)
[2024-07-22 18:02] LABS: pH Urine UA 5.5 (4.5-8.0)
[2024-07-22 18:09] LABS: Bacteria Urine Many (>30); Culture Indicated Urine Specimen Cultured; RBC Urine 0-1/HPF (0-5/HPF); Squamous Epithelial Cell Urine 0-1 /HPF (0-5/HPF); Urine Volume 10mL (spun); WBC Urine 30-100/HPF (0-5/HPF)
== END ==
PROVIDERS: PCP Family Medicine; Referring Provider Family Medicine; Visit Provider Family Medicine
DX: K44.9 Diaphragmatic hernia without obstruction or gangrene (principal); K21.9 Gastro-esophageal reflux disease without esophagitis; R10.9 Unspecified abdominal pain; R35.0 Frequency of micturition; R30.0 Dysuria; R10.13 Epigastric pain; E03.9 Hypothyroidism, unspecified; D72.819 Decreased white blood cell count, unspecified; I10 Essential (primary) hypertension; E78.2 Mixed hyperlipidemia
CPT/HCPCS: 36415; 80053; 81001; 83690; 85025; 87077; 87086; 87186

== ENCOUNTER → 2024-10-04 09:27 | Outpatient (CLI) | payer MEDICARE, OTHER, SELFPAY ==
[2021-07-22 13:42] VITALS: BMI 30.7
[2024-10-04 10:22] LABS: Add Manual Diff / Slide Review NO; Basophils Absolute Auto 100 /uL (0-100); Basophils Percent Auto 1.1 % (0-2); Eosinophils Absolute Auto 100 /uL (0-450); Eosinophils Percent Auto 2.9 % (2-4); Hematocrit 38.5 % (36-46); Hemoglobin 13.1 g/dL (12.0-16.0); Lymphocytes Absolute Auto 1200 /uL (1100-4500); Lymphocytes Percent Auto 25.2 % (25-40); Mean Corpuscular Volume 91.1 fL (80-100); Monocytes Absolute Auto 500 /uL (0-900); Monocytes Percent Auto 10.3 % (3-14); Neutrophils Absolute Auto 2800 /uL (1500-7000); Neutrophils Percent Auto 60.5 % (50-75); Platelet Count 260 X10^3/uL (150-400); Red Blood Cell Count 4.23 X10^6/uL (4.0-5.2); White Blood Cell Count 4.6 X10^3/uL (4.5-11.0)
[2024-10-04 10:43] LABS: Appearance Urine UA SL CLOUDY; Bilirubin Urine UA NEGATIVE (NEGATIVE); Color Urine UA YELLOW; Glucose Urine UA NEGATIVE (Negative); Ketones Urine UA TRACE (NEGATIVE); Leukocyte Esterase Urine UA 1+ (NEGATIVE); Nitrite Urine UA NEGATIVE (Negative); Occult Blood Urine UA TRACE-INTACT (Negative); Protein Urine UA NEGATIVE (Negative); Specific Gravity Urine UA >=1.030 (1.000-1.035); Urobilinogen Urine UA 0.2 E.U./dL (0.2)
[2024-10-04 10:47] LABS: pH Urine UA 5.5 (4.5-8.0)
[2024-10-04 12:19] LABS: Bacteria Urine None Seen; Calcium Oxalate Crystals Urine Few; Culture Indicated Urine Cult Not Indicated; RBC Urine 0-1/HPF (0-5/HPF); Squamous Epithelial Cell Urine 1-5 /HPF (0-5/HPF); Urine Volume 10mL (spun); WBC Urine 1-5/HPF (0-5/HPF)
[2024-10-04 15:41] LABS: Cholesterol 208 mg/dL (140-199); Triglycerides 70 mg/dL (35-150)
[2024-10-04 15:49] LABS: HDL Cholesterol 107 mg/dL (40-60); LDL Cholesterol Calculated 87 mg/dL (<100)
[2024-10-04 16:13] LABS: TSH w/ Reflex to FT4 2.82 uIU/mL (0.47-4.68)
== END ==
PROVIDERS: PCP Family Medicine; Referring Provider Family Medicine; Visit Provider Family Medicine
DX: E03.9 Hypothyroidism, unspecified (principal); D72.819 Decreased white blood cell count, unspecified; I10 Essential (primary) hypertension; E78.2 Mixed hyperlipidemia; R35.0 Frequency of micturition
CPT/HCPCS: 36415; 80061; 81001; 84443; 85025

== ENCOUNTER → 2025-03-18 08:25 | Outpatient (CLI) | payer MEDICARE, OTHER, SELFPAY ==
[2021-07-22 13:42] VITALS: BMI 30.7
[2025-03-18 08:51] LABS: Hematocrit 36.7 % (36-46); Hemoglobin 12.7 g/dL (12.0-16.0); Mean Corpuscular HGB Conc 34.7 % (30-36); Mean Corpuscular Hemoglobin 31.3 PG (26-34); Mean Corpuscular Volume 90.3 fL (80-100); Platelet Count 244 X10^3/uL (150-400)
[2025-03-18 09:41] LABS: Blood Urea Nitrogen 12 mg/dL (7-17); Calcium 9.4 mg/dL (8.4-10.2); Carbon Dioxide 24 mmol/L (22-32); Estimated Glomerular Filt Rate > 60 mL/min (>60); HDL Cholesterol 103 mg/dL (40-60); HEMOLYSIS < 15 (0-50); Sodium 137 mmol/L (137-145)
[2025-03-18 09:56] LABS: Chloride 105 mmol/L (98-107); Cholesterol 186 mg/dL (140-199); Glucose 116 mg/dL (70-99); Potassium 4.0 mmol/L (3.4-5.1); Triglycerides 62 mg/dL (35-150)
== END ==
PROVIDERS: PCP Family Medicine; Referring Provider Internal Medicine Cardiovascular Disease; Visit Provider Internal Medicine Cardiovascular Disease
DX: E78.2 Mixed hyperlipidemia (principal); I10 Essential (primary) hypertension; Z79.01 Long term (current) use of anticoagulants
CPT/HCPCS: 36415; 80048; 80061; 85027

== ENCOUNTER → 2025-04-06 09:32 | Outpatient (CLI) | payer MEDICARE, OTHER, SELFPAY ==
[2021-07-22 13:42] VITALS: BMI 30.7
--- NOTE | 2025-04-06 09:33 | DI.RAD.S_ITS ---
PROCEDURE: XR KNEE RT 3V INDICATIONS: right knee pain, swelling TECHNIQUE: 3 views of the knee were acquired. COMPARISON: [facility], , XR KNEE RT 3V, 07/31/2023, 16:32. FINDINGS: Bones: No fractures or dislocations. No suspicious bony lesions. Medial joint space moderate joint space narrowing with marginal osteophyte Soft tissues: Moderate joint effusion IMPRESSION: Moderate arthritic changes and joint effusion Approved by: Timi Nelson M.D. on 04/07/2025 at 10:14
== END ==
PROVIDERS: PCP Family Medicine; Referring Provider Family Medicine; Visit Provider Family Medicine
DX: M25.561 Pain in right knee (principal); M25.461 Effusion, right knee
CPT/HCPCS: 73562

== ENCOUNTER 2025-07-03 10:11 | Emergency (ER) | payer MEDICARE, OTHER, SELFPAY ==
[2021-07-22 13:42] VITALS: BMI 30.7
[2025-07-03 10:29] VITALS: BP 168/74; PULSE 92; RESP 18; TEMP 36.7; O2SAT 98; BMI 25.5
[2025-07-03 11:02] LABS: Appearance Urine UA CLEAR; Bilirubin Urine UA NEGATIVE (NEGATIVE); Color Urine UA YELLOW; Glucose Urine UA NEGATIVE (Negative); Ketones Urine UA NEGATIVE (NEGATIVE); Leukocyte Esterase Urine UA TRACE (NEGATIVE); Nitrite Urine UA NEGATIVE (Negative); Occult Blood Urine UA NEGATIVE (Negative); Protein Urine UA NEGATIVE (Negative); Specific Gravity Urine UA >=1.030 (1.000-1.035); Urobilinogen Urine UA 0.2 E.U./dL (0.2)
[2025-07-03 11:06] LABS: pH Urine UA 5.5 (4.5-8.0)
[2025-07-03 11:08] LABS: Culture Indicated Urine Cult Not Indicated
--- NOTE | 2025-07-03 11:34 | ED.BACK ---
HPI - Back Pain/Injury <Lesley Abdul PA-C - Last Filed: 07/03/25 13:55> General Chief Complaint: Back Pain/Injury Stated Complaint: Severe back pain Time Seen by Provider: 07/03/25 11:03 Source: patient History of Present Illness HPI Narrative: Ms. Nunez is a pleasant 79-year-old female with a past medical history of AFib on anticoagulation, hypertension, hyperlipidemia, hypothyroidism who presents to emergency department for mid low back pain since yesterday. Patient denies any inciting injuries, states that pain just developed while she was doing her normal activities at home. She has had mild back pain in the past but she has never had back pain this severe. Describes it as in the mid lumbar region, nonradiating. No numbness tingling weakness of the lower legs, no saddle anesthesia, bowel or bladder dysfunction. No fevers or chills. No history of spine surgery. No trauma to the back. Patient is ambulatory but with discomfort. States that the pain is alleviated by sitting upright, using a heating pack, she had to sleep this way. However pain is exacerbated by any movement, walking. She is here with her . Related Data Home Medications ?Medication ?Instructions ?Recorded ?Confirmed flecainide 100 mg tablet 100 mg PO Q8H PRN a fib 11/13/22 05/01/25 atorvastatin 80 mg tablet 10 mg PO DAILY 09/27/23 05/01/25 diltiazem HCl 120 mg capsule,24 360 mg PO QAM 09/27/23 05/01/25 hr,extended release losartan 50 mg tablet 50 mg PO DAILY 09/27/23 05/01/25 Previous Rx's ?Medication ?Instructions ?Recorded levothyroxine 100 mcg tablet 100 mcg PO DAILY #90 tabs 03/02/25 omeprazole 20 mg capsule,delayed 20 mg PO DAILY #90 caps 04/08/25 release dabigatran etexilate 150 mg capsule 150 mg PO BID #180 caps 06/22/25 lidocaine 5 % topical patch 1 patch topical DAILY 1 month #30 07/03/25 (Lidoderm) ea methocarbamol 500 mg tablet 500 mg PO BEDTIME PRN muscle spasm 07/03/25 #10 tabs Allergies Allergy/AdvReac Type Severity Reaction Status Date / Time Sulfa (Sulfonamide AdvReac Severe VOMITING Verified 07/03/25 10:28 Antibiotics) (SULFA (SULFONAMIDE ANTIBIOTICS)) ANESTHESIA AdvReac Severe Uncoded 07/03/25 10:28 nausea Review of Systems <Lesley Abdul PA-C - Last Filed: 07/03/25 13:55> Review of Systems ROS Unobtainable: All systems reviewed & are unremarkable except as noted in HPI and below Patient History <Lesley Abdul PA-C - Last Filed: 07/03/25 13:55> Medical History Primary osteoarthritis of right knee Varicose veins of both legs with edema Hyperglycemia Bilateral leg weakness Hypothyroidism Anticoagulation adequate with anticoagulant therapy Atrial fibrillation with RVR Vision disorder Mumps Measles Chicken pox Fibroids (~1979) Sepsis Influenza Surgical History Anesthesia History of knee surgery History of cholecystectomy History of hysterectomy Status post total abdominal hysterectomy and bilateral salpingo-oophorectomy (KARISHMA-BSO) History of cholecystectomy Status post cholecystectomy Family History Father Heart disease Social History marital status: household members: spouse occupational status: previously employed Smoking Status: Former smoker alcohol intake: current substance use type: does not use Smoking Status: Former smoker tobacco type: cigarettes alcohol intake frequency: 0-2 drinks per day Exam <Lesley Abdul PA-C - Last Filed: 07/03/25 13:55> Narrative Exam Narrative: GENERAL: 79 year old patient appears stated age. Well-developed patient, in no acute distress. HEAD: Atraumatic. Normocephalic. EYES: No scleral icterus. No injection or drainage. NECK: Trachea midline. Cervical ROM intact. CARDIOVASCULAR: Regular rate and rhythm. RESPIRATORY: ?Nonlabored respirations. ?Speaking in clear, full sentences. ?Clear to auscultation. Breath sounds equal bilaterally. No wheezes, rales, or rhonchi. ? GASTROINTESTINAL: Abdomen soft, non-tender, nondistended. EXTREMITIES: No LE edema or tenderness. BACK: Subjective pain in the mid lumbar region, pain is not reproducible with palpation, pain is reproducible with going from sitting to standing position and twisting. No rashes or bruising. NEURO: AOx3. ?Clear speech. ?Moves all 4 extremities appropriately. 5/5 lower extremity knee flexion/extension strength. SKIN: No rash or erythema of visible areas Initial Vital Signs Initial Vital Signs: Vital Signs Temperature 98.1 F 07/03/25 10:29 Pulse Rate 92 H 07/03/25 10:29 Respiratory Rate 18 07/03/25 10:29 Blood Pressure 168/74 H 07/03/25 10:29 Pulse Oximetry 98 07/03/25 10:29 Oxygen Delivery Method Room Air 07/03/25 10:29 <DO Gertrude Agrawal Last Filed: 07/04/25 10:39> Initial Vital Signs Initial Vital Signs: Vital Signs Temperature 98.1 F 07/03/25 10:29 Pulse Rate 92 H 07/03/25 10:29 Respiratory Rate 18 07/03/25 10:29 Blood Pressure 168/74 H 07/03/25 10:29 Pulse Oximetry 98 07/03/25 10:29 Oxygen Delivery Method Room Air 07/03/25 10:29 Course <Lesley Abdul PA-C - Last Filed: 07/03/25 13:55> Orders Ordered: Discontinued Medications Acetaminophen (Acetaminophen 325 Mg Tablet) 975 mg PO NOW ONE Stop: 07/03/25 11:43 Last Admin: 07/03/25 12:01 Dose: 975 mg Documented By: MINAL Lidocaine (Lidocaine 5% Patch) 1 each TOP NOW ONE Stop: 07/03/25 11:43 Last Admin: 07/03/25 12:01 Dose: 1 each Documented By: MINAL Methocarbamol (Methocarbamol 500 Mg Tablet) 500 mg PO NOW ONE Stop: 07/03/25 11:43 Last Admin: 07/03/25 12:03 Dose: 500 mg Documented By: MINAL Vital Signs Vital signs: Vital Signs - 8 hr 07/03/25 10:29 07/03/25 13:25 Temperature 98.1 F 96.9 F L Pulse Rate 92 H 74 Respiratory Rate 18 16 Blood Pressure 168/74 H 158/70 H Pulse Oximetry 98 98 Oxygen Delivery Method Room Air Room Air <DO Gertrude Agrawal Last Filed: 07/04/25 10:39> Orders Ordered: Discontinued Medications Acetaminophen (Acetaminophen 325 Mg Tablet) 975 mg PO NOW ONE Stop: 07/03/25 11:43 Last Admin: 07/03/25 12:01 Dose: 975 mg Documented By: MINAL Lidocaine (Lidocaine 5% Patch) 1 each TOP NOW ONE Stop: 07/03/25 11:43 Last Admin: 07/03/25 12:01 Dose: 1 each Documented By: MINAL Methocarbamol (Methocarbamol 500 Mg Tablet) 500 mg PO NOW ONE Stop: 07/03/25 11:43 Last Admin: 07/03/25 12:03 Dose: 500 mg Documented By: MINAL Vital Signs Vital signs: Vital Signs - 8 hr 07/03/25 10:29 07/03/25 13:25 Temperature 98.1 F 96.9 F L Pulse Rate 92 H 74 Respiratory Rate 18 16 Blood Pressure 168/74 H 158/70 H Pulse Oximetry 98 98 Oxygen Delivery Method Room Air Room Air MDM - Back Pain/Injury <Lesley Abdul PA-C - Last Filed: 07/03/25 13:55> Medical Records Attestation: I reviewed the patient's medical records. Lab Data Labs: Lab Results 07/03/25 Range/Units 10:38 Urine Color Yellow Urine Appearance Clear Urine pH 5.5 (4.5-8.0) Ur Specific Hoven >=1.030 H (1.000-1.035) Urine Protein Negative (Negative) Urine Glucose (UA) Negative (Negative) g/dL Urine Ketones Negative (NEGATIVE) Urine Occult Blood Negative (Negative) Urine Nitrate Negative (Negative) Urine Bilirubin Negative (NEGATIVE) Urine Urobilinogen 0.2 (0.2) E.U./dL Ur Leukocyte Esterase Trace H (NEGATIVE) Urine RBC None seen (0-5/HPF) Urine WBC None seen (0-5/HPF) Ur Squamous Epith Cells 1-5 /hpf (0-5/HPF) Urine Bacteria None seen (None) Ur Culture Indicated? Cult not indicated Vol Urine Centrifuged 10ml (spun) Imaging Data XR Lumbar: Radiologist's Impression: PROCEDURE: XR LUMBAR SPINE 2-3V INDICATIONS: nontraumatic mid lumbar pain TECHNIQUE: 3 views of the lumbar spine were acquired. COMPARISON: [facility], , XR LUMBAR SPINE 2-3V, 02/03/2021, 11:52. FINDINGS: Bones: 5 [id number] vertebrae are present. There is normal bony alignment. No vertebral body compression fractures. Moderate disc space narrowing at L4-5 and L5-S1. Mild inferior lumbar facet arthrosis. No suspicious bony lesions. Soft tissues: Overlying bowel gas pattern is normal. No suspicious soft tissue calcifications. Cholecystectomy clips in the right upper quadrant. IMPRESSION: No acute bony abnormality. Inferior lumbar moderate spondylosis. Dictated by: Ced Martin M.D. on 07/03/2025 at 12:21 Approved by: Ced Martin M.D. on 07/03/2025 at 12:21 [facility] Narrative Medical decision making narrative: 79-year-old female with a past medical history of AFib on anticoagulation, hypertension, hyperlipidemia, hypothyroidism who presents to emergency department for mid low back pain since yesterday. Differential diagnosis includes but is not limited to spinal stenosis, degenerative disc disease, compression fracture, UTI, etc. On exam patient is in no acute distress, nontoxic-appearing, vital signs reveal slightly elevated blood pressure and heart rate, afebrile, 98% on room air. Patient is ambulatory, lower extremities are neurovascularly intact, no saddle anesthesia, bowel or bladder dysfunction. Patient is having acute mid lumbar back pain without trauma. Given her age, past medical history, we will obtain baseline lumbar x-ray to rule out pathologic fracture, we will treat pain with Tylenol, Lidoderm, methocarbamol, patient can not have NSAIDs she is reluctant to try opioids at this time. X-ray reveals no vertebral body compression fractures, there is moderate disc space narrowing L4-L5 and L5-S1, overall no acute bony abnormality but inferior lumbar moderate spondylosis. Patient is feeling better after ED treatment of Lidoderm Tylenol and methocarbamol. Her is here to drive her home. Discussed supportive care including heat therapy, gentle movement in addition to Tylenol, Lidoderm, methocarbamol. I did encourage her to only use methocarbamol at night due to drowsy side effects. Discussed risks of the muscle relaxers. Discussed the importance of follow up with PCP for further monitoring and management. Patient and verbalized understanding of all information agreeable with the plan. She is ambulatory and stable for discharge home, I personally assisted the patient via wheelchair to her car, she then was able to stand and ambulate independently into the car, driving home. <Tyesha Nettles, DO - Last Filed: 07/04/25 10:39> Lab Data Labs: Lab Results 07/03/25 Range/Units 10:38 Urine Color Yellow Urine Appearance Clear Urine pH 5.5 (4.5-8.0) Ur Specific Hoven >=1.030 H (1.000-1.035) Urine Protein Negative (Negative) Urine Glucose (UA) Negative (Negative) g/dL Urine Ketones Negative (NEGATIVE) Urine Occult Blood Negative (Negative) Urine Nitrate Negative (Negative) Urine Bilirubin Negative (NEGATIVE) Urine Urobilinogen 0.2 (0.2) E.U./dL Ur Leukocyte Esterase Trace H (NEGATIVE) Urine RBC None seen (0-5/HPF) Urine WBC None seen (0-5/HPF) Ur Squamous Epith Cells 1-5 /hpf (0-5/HPF) Urine Bacteria None seen (None) Ur Culture Indicated? Cult not indicated Vol Urine Centrifuged 10ml (spun) Discharge Plan Departure Patient Disposition: Home Clinical Impression: Lumbar spondylosis Low back pain Qualifiers: Chronicity: acute Back pain laterality: midline Sciatica presence: without sciatica Qualified Code(s): M54.50 - Low back pain, unspecified Instructions: DI for Low Back Pain Activity Restrictions/Additional Instructions: Dear Len Mayra, Thank you for coming to the emergency department. Today you were evaluated for low back pain. The x-ray of your low back did reveal disc space narrowing between L4 and L5 and L5-S1 an overall degenerative disc disease. I would like you to please follow up with your primary care doctor for further management, you may benefit from physical therapy. You have been prescribed topical numbing patches in addition to a muscle relaxer. Please only use the muscle relaxer at night because it will make you drowsy. Do not take alcohol, drive a car operate heavy machinery while taking muscle relaxers. Please also use Tylenol for pain. Return to the emergency department if develop any new or worsening symptoms such as severe pain, inability to walk, fevers, difficulty going to the bathroom or any other concerns. Please follow up with your primary care doctor within the next 2-3 days for ER follow-up. (If you do not have a PCP you can call [phone]. ?to schedule an appointment with an [facility] Primary Care Provider) IF YOU DEVELOP ANY NEW OR WORSENING SYMPTOMS, RETURN TO THE ER! Please read the attached instructions, they highlight more specific treatments and interventions for you at home. Thank you for letting me participate in your care, Lesley Abdul PA-C Prescriptions: New lidocaine [Lidoderm] 5 % adhesive patch,medicated 1 patch topical DAILY 30 Days Qty: 30 0RF Rx Instructions: leave on most painful area for up to 12 hrs methocarbamol 500 mg tablet 500 mg PO BEDTIME PRN (Reason: muscle spasm) Qty: 10 0RF No Action levothyroxine 100 mcg tablet 100 mcg PO DAILY Qty: 90 1RF omeprazole 20 mg capsule,delayed release(DR/EC) 20 mg PO DAILY Qty: 90 3RF dabigatran etexilate 150 mg capsule 150 mg PO BID Qty: 180 1RF diltiazem HCl 120 mg capsule,extended release 24 hr 360 mg PO QAM losartan 50 mg tablet 50 mg PO DAILY atorvastatin 80 mg tablet 10 mg PO DAILY flecainide 100 mg tablet 100 mg PO Q8H PRN (Reason: a fib) Referrals: Manjinder Lopez MD [Primary Care Provider, Family Practice] Stand Alone Forms: Patient Portal/API ED Sign-out <Tyesha Nettles, DO - Last Filed: 07/04/25 10:39> Cosign ED Attending Cosangelinaature Attestation: I was available for consultation.
--- NOTE | 2025-07-03 11:42 | DI.RAD.S_ITS ---
PROCEDURE: XR LUMBAR SPINE 2-3V INDICATIONS: nontraumatic mid lumbar pain TECHNIQUE: 3 views of the lumbar spine were acquired. COMPARISON: [facility], CR, XR LUMBAR SPINE 2-3V, 02/03/2021, 11:52. FINDINGS: Bones: 5 [id number] vertebrae are present. There is normal bony alignment. No vertebral body compression fractures. Moderate disc space narrowing at L4-5 and L5-S1. Mild inferior lumbar facet arthrosis. No suspicious bony lesions. Soft tissues: Overlying bowel gas pattern is normal. No suspicious soft tissue calcifications. Cholecystectomy clips in the right upper quadrant. IMPRESSION: No acute bony abnormality. Inferior lumbar moderate spondylosis. Dictated by: Ced Martin M.D. on 07/03/2025 at 12:21 Approved by: Ced Martin M.D. on 07/03/2025 at 12:21
[2025-07-03] MEDS: LIDOCAINE 5% PATCH 1 EACH TOP (12:01)
[2025-07-03] MEDS: ACETAMINOPHEN 325 MG TABLET 975 MG PO (12:01)
[2025-07-03 13:25] VITALS: BP 158/70; PULSE 74; RESP 16; TEMP 36.1; O2SAT 98
== END 2025-07-03 13:25 | disposition home or self-care (01) ==
PROVIDERS: Emergency Medicine; Emergency Provider Physician Assistant; PCP Family Medicine
DX: M47.816 Spondylosis without myelopathy or radiculopathy, lumbar region (principal); M54.50 Low back pain, unspecified
CPT/HCPCS: 72100; 81001; 99283